=== PATIENT | female | born 1990 | race American Indian/Alaskan Native ===

== ENCOUNTER 2018-12-14 15:17 | Emergency (ER) | payer OTHER ==
--- NOTE | 2018-12-14 16:05 | Emergency Department Report ---
Blank Doc - Documentation Documentation: This is a 28-year-old female that is 17 weeks presents to the ED with n/v. Stated has headache from vomiting so much. Denies any pelvic or abdominal pain. Denies any vaginal bleeding. This initial assessment/diagnostic orders/clinical plan/treatment(s) is/are subject to change based on patient's health status, clinical progression and re- assessment by fellow clinical providers in the ED. Further treatment and workup at subsequent clinical providers discretion. Patient/guardians urged not to elope from the ED as their condition may be serious if not clinically assessed and managed. Initial orders include: 1- Patient sent to [facility] for further evaluation and treatment 2- labs
[2018-12-14 16:06] VITALS: BP 112/59
[2018-12-14 17:08] LABS: Basophils % (Auto) 0.1 % (0.0-1.8); Eosinophils % (Auto) 0.2 % (0.0-4.3); Hematocrit 26.7 % (30.3-42.9); Hemoglobin 9.1 gm/dl (10.1-14.3); Lymphocytes # (Auto) 1.1 K/mm3 (1.2-5.4); Lymphocytes % (Auto) 17.2 % (13.4-35.0); Mean Corpuscular HGB Conc 34 % (30-34); Mean Corpuscular Volume 92 fl (79-97); Monocytes # (Auto) 0.3 K/mm3 (0.0-0.8); Monocytes % (Auto) 5.1 % (0.0-7.3); Platelet Count 181 K/mm3 (140-440); Red Cell Distribution Width 14.2 % (13.2-15.2)
[2018-12-14 17:31] LABS: BUN/Creatinine Ratio 17; Blood Urea Nitrogen 12 mg/dL (7-17); Calcium 8.7 mg/dL (8.4-10.2); Hemolysis Index 0
--- NOTE | 2018-12-14 17:44 | Emergency Department Report ---
Vomiting/Diarrhea - HPI Chief Complaint: Nausea/Vomiting/Diarrhea Stated Complaint: VOMITTING/HEADACHE Time Seen by Provider: 12/14/18 16:02 Duration: 1 Day Nausea/Vomiting Severity: Mild Diarrhea Severity: None Pain Location: Other (no abdominal pain) Symptoms: Yes Able to Tolerate Fluids, No Watery Diarrhea, No Bloody diarrhea, No Fever, No Recent Unusual Foods, No Recent Untreated Water, No Recent use of Antibiotics, No Family w/ Similar Symptoms, No Contacts w/ Similar Symptoms, No Rash, No Hematuria, No Recent URI Symptoms Other History: She is a 28-year-old female who presents to ED complaining of transient vomiting that happened this morning. Patient states she was able to tolerate foods and fluids afterwards. Patient states that she was recently taking Zofran for nausea which is working. She is a [employer]. ED Review of Systems ROS: Stated complaint: VOMITTING/HEADACHE Other details as noted in HPI Comment: All other systems reviewed and negative ED Past Medical Hx - Past Medical History Previous Medical History?: No - Surgical History Past Surgical History?: No - Social History Smoking Status: Former Smoker Substance Use Type: None Vomiting Diarrhea Exam - Exam General: Vital signs noted. No distress. Alert and acting appropriately. HEENT: Yes Moist Mucous Membranes, No Pharyngeal Erythema, No Pharyngeal Exudates, No Rhinorrhea, No Conjuctival Injection, No Frontal Tenderness, No Maxillary Tenderness Neck: No Adenopathy, No Rigidity Lungs: Yes Clear Lung Sounds, Yes Good Air Exchange, No Wheezes, No Stridor, No Cough, No Nasal Flaring, No Retractions, No Use of Accessory Muscles Heart exam: Regular: Yes, Murmur: No, Tachycardia: No Abdomen: Tenderness: No, Peritoneal Signs: No, Distention: No, Hyperactive Bowel sounds: No Skin exam: Rash: No, Edema: No, Normal turgor: Yes Neurologic: Alert and oriented, no deficits. Musculoskeletal: Unremarkable. ED Course Vital Signs 12/14/18 16:05 Temperature 98.5 F Pulse Rate 80 Respiratory 18 Rate Blood Pressure 112/59 O2 Sat by Pulse 99 Oximetry ED Medical Decision Making - Lab Data Result diagrams: 12/14/18 16:45 12/14/18 16:45 - Medical Decision Making 28-year-old female presents with nausea vomiting that is resolved now. Discussed the patient will follow-up with less likely [employer] WORKER. Patient had no vomiting episode in the ED. Labs are within normal limits. Critical care attestation.: If time is entered above; I have spent that time in minutes in the direct care of this critically ill patient, excluding procedure time. ED Disposition Clinical Impression: Nausea and vomiting in Disposition: DC- TO HOME OR SELFCARE Is pt being admited?: No Does the pt Need Aspirin: No Condition: Stable Instructions: Morning Sickness (ED) Additional Instructions: Make sure to follow up with the primary care physician as discussed. Take all your medications as you've been prescribed. If you have any worsening symptoms or develop new symptoms please return to ED immediately. Referrals: KENDELL ARNOLD MD [Primary Care Provider] - 3-5 Days [facility] [Provider Group] - 3-5 Days Forms: Work/School Release Form(ED) Time of Disposition: 18:12
== END 2018-12-14 18:29 | disposition home or self-care (01) ==
LOC: ED 15:17
DX: O21.9 Vomiting of pregnancy, unspecified (principal); Z3A.00 Weeks of gestation of pregnancy not specified; Z87.891 Personal history of nicotine dependence
CPT/HCPCS: 36415; 80048; 85025; 99283

== ENCOUNTER 2019-02-01 11:09 | Outpatient (CLI) | payer OTHER ==
[2019-02-01 11:33] VITALS: BP 102/56
[2019-02-01 12:52] LABS: Bacteria,Urine 4+ /HPF (Negative); Bilirubin,Urine NEG (Negative); Blood,Urine NEG (Negative); Color,Urine Yellow (Yellow); Mucus,Urine 2+ /HPF; Urobilinogen,Urine < 2.0 mg/dL (<2.0)
[2019-02-01] MEDS ORDERED: LACTATED RINGERS 500 ML IV ONE (12:55)
== END 2019-02-01 12:15 | disposition home or self-care (01) ==
LOC: TRG 11:09
PROVIDERS: ATTEND Obstetrics & Gynecology
DX: O47.02 False labor before 37 completed weeks of gestation, second trimester (principal); Z3A.24 24 weeks gestation of pregnancy
CPT/HCPCS: 59025; 81001; 87076; 87086; 87186

== ENCOUNTER 2019-03-31 19:48 | Emergency (ER) | payer OTHER ==
[2019-03-31 20:05] VITALS: BP 121/47
--- NOTE | 2019-03-31 20:20 | Event Note ---
ED Screening Note Date of service: 03/31/19 Time: 20:17 ED Screening Note: This is 28 y.o. F. that presents to the ER with difficulty swallowing and SOB since today. Denies dizziness, fever, cough, sore throat, nausea, or vomiting. Patient is 32 weeks . This initial assessment/diagnostic orders/clinical plan/treatment(s) is/are subject to change based on patients health status, clinical progression and re- assessment by fellow clinical providers in the ED. Further treatment and workup at subsequent clinical providers discretion. Patient/guardian urged not to elope from the ED as their condition may be serious if not clinically assessed and managed. Initial orders include:
--- NOTE | 2019-03-31 21:21 | Emergency Department Report ---
ED General Adult HPI - General Chief complaint: Dyspnea/Respdistress Stated complaint: SOB/THROAT PAIN Time Seen by Provider: 03/31/19 20:16 Source: patient Mode of arrival: Ambulatory Limitations: No Limitations - History of Present Illness Initial comments: Patient is a 28-year-old female presents for complaints of throat irritation and shortness of breath. Patient states the symptoms happen after eating. Patient states the symptoms started today. Patient states she's also been having a lot of burping. Patient denies abdominal pain. Patient denies vaginal bleeding. Patient's is 32 weeks . Patient is being followed by a [employer] [facility]. Patient states the throat irritation feels like a fullness. Patient denies chest pain. Patient denies throat pain. -: Sudden Severity scale (0 -10): 0 Consistency: now resolved Improves with: rest Worsens with: eating Associated Symptoms: shortness of breath. denies: confusion, chest pain, cough, diaphoresis, fever/chills, headaches, loss of appetite, malaise, nausea/vomiting, rash, seizure, syncope, weakness Treatments Prior to Arrival: none - Related Data Previous Rx's Medication Instructions Recorded Last Taken Type Famotidine [Pepcid] 20 mg PO BID 30 Days #15 tablet 03/31/19 Unknown Rx Allergies Allergy/AdvReac Type Severity Reaction Status Date / Time latex Allergy Unknown Verified 02/01/19 11:13 ED Review of Systems ROS: Stated complaint: SOB/THROAT PAIN Other details as noted in HPI Constitutional: denies: chills, fever Eyes: denies: eye pain, eye discharge, vision change ENT: denies: ear pain Respiratory: shortness of breath. denies: cough, wheezing Cardiovascular: denies: chest pain, palpitations Endocrine: no symptoms reported Gastrointestinal: denies: abdominal pain, nausea, diarrhea Genitourinary: denies: urgency, dysuria, discharge Musculoskeletal: denies: back pain, joint swelling, arthralgia Skin: denies: rash, lesions Neurological: denies: headache, weakness, paresthesias Psychiatric: denies: anxiety, depression Hematological/Lymphatic: denies: easy bleeding, easy bruising ED Past Medical Hx - Past Medical History Previous Medical History?: No Hx Hypertension: No Hx Diabetes: No Hx Deep Vein Thrombosis: No Hx Renal Disease: No Hx Sickle Cell Disease: No Hx Seizures: No Hx Asthma: No Hx HIV: No - Surgical History Past Surgical History?: Yes Additional Surgical History: Right eye - Family History Family history: no significant - Social History Smoking Status: Former Smoker Substance Use Type: None - Medications Home Medications: Home Medications Medication Instructions Recorded Confirmed Last Taken Type Famotidine [Pepcid] 20 mg PO BID 30 Days #15 tablet 03/31/19 Unknown Rx ED Physical Exam - General Limitations: No Limitations General appearance: alert, in no apparent distress - Head Head exam: Present: atraumatic, normocephalic - Eye Eye exam: Present: normal appearance - ENT ENT exam: Present: mucous membranes moist - Neck Neck exam: Present: normal inspection - Respiratory Respiratory exam: Present: normal lung sounds bilaterally. Absent: respiratory distress, wheezes, rales, rhonchi, stridor - Cardiovascular Cardiovascular Exam: Present: regular rate, normal rhythm. Absent: systolic murmur, diastolic murmur, rubs, gallop - GI/Abdominal GI/Abdominal exam: Present: soft, distended (gravid abdomen noted), rigid, normal bowel sounds. Absent: tenderness, guarding, rebound - Rectal Rectal exam: Present: deferred - Extremities Exam Extremities exam: Present: normal inspection - Back Exam Back exam: Present: normal inspection - Neurological Exam Neurological exam: Present: alert, oriented X3 - Psychiatric Psychiatric exam: Present: normal affect, normal mood - Skin Skin exam: Present: warm, dry, intact, normal color. Absent: rash ED Course Vital Signs 03/31/19 20:02 Temperature 98.6 F Pulse Rate 90 Respiratory 18 Rate Blood Pressure 121/47 O2 Sat by Pulse 98 Oximetry - Reevaluation(s) Reevaluation #1: Patient's clinical findings are consistent with acid reflux. Patient will be given Pepcid. I discussed clinical findings with patient. I discussed plan of care outpatient. Patient agrees with plan of care. Patient given discharge instructions. Patient voiced understanding of all instructions. 03/31/19 21:18 ED Medical Decision Making - Medical Decision Making Patient is 28-year-old female just mentioned with complaints of shortness of breath and throat irritation. Patient stated her symptoms have resolved by time she got to the main ER. Patient also complained of burping and fullness in her throat. Patient actually have any throat pain. Patient's clinical findings are consistent with acid reflux. She discharged home with Pepcid. Patient by signs stable. Patient oxygen normal. Heart rate normal. - Differential Diagnosis throat irritation. Shortness of breath. Acid reflux GERD. Critical care attestation.: If time is entered above; I have spent that time in minutes in the direct care of this critically ill patient, excluding procedure time. ED Disposition Clinical Impression: GERD without esophagitis Disposition: TO HOME OR SELFCARE Is pt being admited?: No Does the pt Need Aspirin: No Condition: Stable Instructions: Diet for Ulcers and Gastritis (ED), Gastroesophageal Reflux Disease (ED) Additional Instructions: Patient to follow-up with primary cancer to 3 days. Patient to follow-up with [employer] in 2-3 days. Patient to continue vitamins. Patient to start medications as directed. Patient to be a reflux diet. Patient to rest. Patient to increase water. Patient to take Tylenol when necessary for pain. Prescriptions: Famotidine [Pepcid] 20 mg PO BID 30 Days #15 tablet Referrals: MANUELITO GARCIA MD [Primary Care Provider] - 3-5 Days Time of Disposition: 21:24
== END 2019-03-31 22:10 | disposition home or self-care (01) ==
LOC: ED 19:48
DX: K21.9 Gastro-esophageal reflux disease without esophagitis (principal); Z98.890 Other specified postprocedural states; Z87.891 Personal history of nicotine dependence; Z79.899 Other long term (current) drug therapy; Z91.040 Latex allergy status
CPT/HCPCS: 99282

== ENCOUNTER 2019-05-06 21:20 | Outpatient (CLI) | payer OTHER ==
[2019-05-06 21:38] VITALS: BP 127/60
--- NOTE | 2019-05-07 00:26 | Ultrasound Report ---
Limited OB ultrasound INDICATION: labor FINDINGS: There is a single intrauterine . Fetus is in a cephalic presentation. Amniotic fluid index i s normal measuring 11.8 cm. Placenta is located anteriorly and is grade 1. heart rate is 125 bpm. IMPRESSION: Amniotic fluid index is normal. heart rate is 125 bpm. BIOPHYSICAL PROFILE: INDICATION: labor FINDINGS: breathing movements: Score = 2/2 movement: Score = 2/2 posture and tone: Score = 2/2 Qualitative amniotic fluid volume: Score equals 2/2 IMPRESSION: Biophysical profile score = 8/8 Signer Name: Wellington Kern MD Signed: 05/07/2019 12:21 AM Workstation Name: [id number]
--- NOTE | 2019-05-07 10:23 | Progress Note ---
Assessment and Plan A: at 37 4/7 weeks gestation. False labor. Reactive NST. BPP 8/8. Normal SALINA. P: Discharge patient home with instructions to count movements daily and keep scheduled follow up at [facility] office. Signs of labor and late warning signs discussed with pt. Subjective - Subjective Date of service: 05/06/19 Principal diagnosis: at 37 4/7 weeks; R/O labor Interval history: 28 year old presents to L&D triage at 37 4/7 weeks to rule out labor. Patient states she was at a wedding dancing when she began to feel contractions this afternoon. Pt. denies leaking of fluid or vaginal bleeding. Patient reports active movement. Patient denies falls or abdominal trauma. Patient receives care at [facility] and she states she has had no problems during this . Previous full term vaginal . Patient reports: movement normal, contractions, no loss of fluid, no vaginal bleeding Objective - Vital Signs Vital Signs: Vital Signs - 12hr 05/06/19 22:25 Pulse Rate 91 H O2 Sat by Pulse 100 Oximetry - Exam Narrative Exam: BPP 8/8. SALINA 11.8 cm. Category 1 heart rate tracing. Abdomen: Present: normal appearance, soft. Absent: distention, tenderness, guar ding, rigidity Uterus: Present: normal, fundal height above umbilicus. Absent: tenderness FHR: category 1 Uterine Contraction Monitor Mode: External Cervical Dilatation: 1.5 Cervical Effacement Percentage: 50 station: -3 Uterine Contraction Pattern: Irregular Uterine Contraction Intensity: Mild Extremities: normal
== END 2019-05-06 23:50 | disposition home or self-care (01) ==
LOC: TRG 21:20
PROVIDERS: ATTEND Obstetrics & Gynecology
DX: O47.03 False labor before 37 completed weeks of gestation, third trimester (principal); Z3A.37 37 weeks gestation of pregnancy
CPT/HCPCS: 59025; 76815; 76819

== ENCOUNTER 2021-02-26 09:22 | Outpatient (CLI) | payer OTHER ==
[2021-02-26 09:55] VITALS: BP 109/57
--- NOTE | 2021-02-26 11:58 | Vascular Lab Report ---
DUPLEX DOPPLER LOWER EXTREMITY VEINS, LEFT INDICATION / CLINICAL INFORMATION: left upper leg pain. TECHNIQUE: Duplex doppler imaging was performed through the veins of the left lower extremity using venous compr ession and other maneuvers. COMPARISON: None available. FINDINGS: LEFT COMMON FEMORAL VEIN: Negative. LEFT FEMORAL VEIN: Negative. LEFT POPLITEAL VEIN: Negative. LEFT CALF VEINS: Negative. ADDITIONAL FINDINGS: None. IMPRESSION: 1. No sonographic evidence for DVT in the left lower extremity. Signer Name: Geoff Louise MD Signed: 02/26/2021 11:54 AM Workstation Name: [id number]
== END 2021-02-26 13:04 | disposition home or self-care (01) ==
LOC: TRG 09:22 → APU 09:24 → TRG 13:04
PROVIDERS: ATTEND Obstetrics & Gynecology
DX: O26.892 Other specified pregnancy related conditions, second trimester (principal); M79.652 Pain in left thigh; Z3A.26 26 weeks gestation of pregnancy

== ENCOUNTER 2021-03-16 18:44 | Outpatient (CLI) | payer OTHER | END 2021-03-16 23:36 | disposition home or self-care (01) | LOC: TRG 18:44 → APU 18:45 | CPT/HCPCS: 59025 ==

== ENCOUNTER 2021-05-04 21:44 | Observation (INO) | payer OTHER ==
[2021-05-04 23:07] LABS: Bacteria,Urine 1+ /HPF (Negative); Bilirubin,Urine NEG (Negative); Blood,Urine NEG (Negative); Color,Urine Yellow (Yellow); Mucus,Urine 2+ /HPF; Urobilinogen,Urine < 2.0 mg/dL (<2.0)
[2021-05-04] MEDS ORDERED: LACTATED RINGERS 1,000 ML IV ONE (23:30)
--- NOTE | 2021-05-04 23:47 | History and Physical Report ---
History of Present Illness Date of examination: 05/04/21 Date of admission: 05/04/2021 Chief complaint: Contractions History of present illness: 30 year old presents with complaint of contractions. In triage, patient was found to have elevated BP. Patient denies visual disturbance or nausea and vomiting. Patient reports active movement. Patient denies LOF or VB. Patient reports she received care at [facility]. Prenaal records are not available. Patient states her EDC is 05/31/21 (based on her LMP). Patient denies any compications with this . 2 previous vaginal births. Past History Past Medical History: other (obesity) Past Surgical History: no surgical history [employer]FERENCE LIBRARIAN History: trichomonas (in the past, treated and cured) Family/Genetic History: hypertension, cancer Social history: lives with family, full code. denies: smoking, alcohol abuse, prescription drug abuse, IV drug use - Obstetrical History Expected Date of Delivery: 05/31/21 Actual Gestation: 36 Week(s) 2 Day(s) : 3 Para: 2 Hx # Term Pregnancies: 2 Number of Pregnancies: 0 Spontaneous Abortions: 0 Induced : 0 Number of Living Children: 2 Medications and Allergies Allergies Allergy/AdvReac Type Severity Reaction Status Date / Time latex Allergy Unknown Verified 05/12/19 03:26 Home Medications Medication Instructions Recorded Confirmed Last Taken Type Cholecalciferol (Vitamin D3) 1 tab PO DAILY 05/11/19 05/12/19 05/09/19 History [Vitamin D3 5,000 UNIT] Ferrous Sulfate [Iron 325 MG] 1 tab PO BID 05/11/19 05/12/19 05/10/19 History Vit-Fe Fumar-FA [ 1 tab PO DAILY 05/11/19 05/12/19 05/11/19 History Vitamin] Active Meds: Active Medications Acetaminophen (Acetaminophen 325 Mg Tab) 650 mg PO Q4H PRN PRN Reason: Pain MILD(1-3)/Fever >100.5/BEAR Lactated Ringer's (Lactated Ringers) 1,000 mls @ 999 mls/hr IV BOLUS ONE Stop: 05/05/21 00:30 Lactated Ringer's (Lactated Ringers) 1,000 mls @ 125 mls/hr IV DIRECT LUCÍA Multivitamins/Iron/Calcium ( [id number]-Oi Fumarate-Folic Acid Vit Tab) 1 each PO QDAY LUCÍA Ondansetron HCl (Ondansetron 4 Mg/2 Ml Inj) 4 mg IV Q6H PRN PRN Reason: Nausea And Vomiting Review of Systems All systems: negative (irregular mild contractions) - Vital Signs Vital signs: Vital Signs Pulse BP Pulse Ox 72 135/95 99 05/04/21 22:41 05/04/21 22:41 05/04/21 22:41 Temp Pulse Resp BP Pulse Ox 98.6 F 75 18 169/81 100 05/04/21 22:42 05/04/21 23:36 05/04/21 22:42 05/04/21 23:28 05/04/21 23:36 - Physical Exam Abdomen: Positive: normal appearance, soft. Negative: distention, tenderness, guarding, rigidity Genitourinary (Female): Positive: normal external genitalia. Negative: perineal/vulvar lesions Vagina: Positive: normal moisture Uterus: Positive: enlarged, other. Negative: tender Anus/Rectum: Positive: normal perianal skin Extremities: Positive: edema. Negative: tenderness - Obstetrical FHR: category 1 Cervical Dilatation: 0 Cervical Effacement Percentage: 20 station: -3 Uterine Contraction Pattern: Irregular Uterine Contraction Intensity: Mild Results All other labs normal. Assessment and Plan A: at 36 weeks, 1 day gestation. Elevated blood pressures (PIH vs. preE). Not in active labor. P: Admit for 23 hour observation. Serial BPs. Preeclamptic labs. 24 hour urine for total protein, creatinine, and creatinine clearance. US for BPP/SALINA. EFM.
[2021-05-04] MEDS ORDERED: ACETAMINOPHEN 325 MG TAB PO PRN (23:50)
[2021-05-04] MEDS ORDERED: ONDANSETRON 4 MG/2 ML INJ IV PRN (23:50)
[2021-05-05 01:56] LABS: Basophils % (Auto) 0.4 % (0.0-1.8); Hematocrit 31.2 % (30.3-42.9); Hemoglobin 10.6 gm/dl (10.1-14.3); Lymphocytes % (Auto) 23.9 % (13.4-35.0); Mean Corpuscular HGB Conc 34 % (30-34); Mean Corpuscular Volume 93 fl (79-97); Monocytes # (Auto) 0.5 K/mm3 (0.0-0.8); Monocytes % (Auto) 6.2 % (0.0-7.3); Platelet Count 189 K/mm3 (140-440); Red Blood Count 3.37 M/mm3 (3.65-5.03); Red Cell Distribution Width 16.2 % (13.2-15.2)
--- NOTE | 2021-05-05 02:15 | Ultrasound Report ---
Biophysical profile INDICATION: well-being FINDINGS: heart rate 133. Biophysical profile score 8 out of 8. IMPRESSION: Normal biophysical profile. Limited OB ultrasound INDICATION: SALINA FINDINGS: Live intrauterine in cephalic position. SALINA measures 9.1 cm. heart rate 1 3 3 bpm. IMPRESSION: SALINA measures 9.1 cm. Normal heart rate Signer Name: Giovanny Newberry MD Signed: 05/05/2021 2:10 AM Workstation Name: [id number]
[2021-05-05 02:23] LABS: Uric Acid 4.9 mg/dL (3.5-7.6)
[2021-05-05 02:24] LABS: Alanine Aminotransferase 18 units/L (7-56); Albumin 3.3 g/dL (3.9-5); Blood Urea Nitrogen 13 mg/dL (7-17); Calcium 9.7 mg/dL (8.4-10.2); Hemolysis Index 89
[2021-05-05 02:35] LABS: BUN/Creatinine Ratio 22
[2021-05-05] MEDS: PRENATAL VIT27-FE FUMARATE-FOLIC ACID VIT TAB PO SCH (09:30)
--- NOTE | 2021-05-05 13:17 | Progress Note ---
Subjective - Subjective Date of service: 05/05/21 Principal diagnosis: elevated blood pressure Interval history: BP's <140/90 since yesterday at 13:00 [facility] labs WNL Plan to complete 24 hour urine, if <300mg/dl will d/c to home for conservative management. Michelle Bartlett MD Patient reports: movement normal Objective - Vital Signs Vital Signs: Vital Signs - 12hr 05/05/21 05/05/21 05/05/21 01:32 01:33 01:37 Temperature Pulse Rate 75 69 75 Respiratory Rate Blood Pressure 140/73 O2 Sat by Pulse 99 98 Oximetry O2 Sat by Pulse Oximetry [ Bilateral] 05/05/21 05/05/21 05/05/21 01:39 01:42 01:47 Temperature 99.7 F H Pulse Rate 73 70 Respiratory Rate Blood Pressure O2 Sat by Pulse 98 99 Oximetry O2 Sat by Pulse 99 Oximetry [ Bilateral] 05/05/21 05/05/21 05/05/21 01:52 01:57 02:02 Temperature Pulse Rate 73 76 70 Respiratory Rate Blood Pressure O2 Sat by Pulse 99 99 99 Oximetry O2 Sat by Pulse Oximetry [ Bilateral] 05/05/21 05/05/21 05/05/21 02:07 02:12 02:17 Temperature Pulse Rate 76 93 H 93 H Respiratory Rate Blood Pressure O2 Sat by Pulse 99 97 98 Oximetry O2 Sat by Pulse Oximetry [ Bilateral] 05/05/21 05/05/21 05/05/21 02:22 02:27 02:32 Temperature Pulse Rate 89 88 89 Respiratory Rate Blood Pressure O2 Sat by Pulse 99 98 100 Oximetry O2 Sat by Pulse Oximetry [ Bilateral] 05/05/21 05/05/21 05/05/21 02:45 02:50 02:55 Temperature Pulse Rate 94 H 87 84 Respiratory Rate Blood Pressure O2 Sat by Pulse 100 98 98 Oximetry O2 Sat by Pulse Oximetry [ Bilateral] 05/05/21 05/05/21 05/05/21 03:00 03:05 03:10 Temperature Pulse Rate 83 86 94 H Respiratory Rate Blood Pressure O2 Sat by Pulse 98 97 99 Oximetry O2 Sat by Pulse Oximetry [ Bilateral] 05/05/21 05/05/21 05/05/21 03:15 03:20 03:25 Temperature Pulse Rate 90 92 H 91 H Respiratory Rate Blood Pressure O2 Sat by Pulse 97 97 97 Oximetry O2 Sat by Pulse Oximetry [ Bilateral] 05/05/21 05/05/21 05/05/21 03:30 03:35 03:40 Temperature Pulse Rate 92 H 90 94 H Respiratory Rate Blood Pressure O2 Sat by Pulse 97 97 97 Oximetry O2 Sat by Pulse Oximetry [ Bilateral] 05/05/21 05/05/21 05/05/21 03:45 03:50 03:55 Temperature Pulse Rate 91 H 94 H 92 H Respiratory Rate Blood Pressure O2 Sat by Pulse 97 97 97 Oximetry O2 Sat by Pulse Oximetry [ Bilateral] 05/05/21 05/05/21 05/05/21 04:00 04:05 04:10 Temperature Pulse Rate 92 H 87 90 Respiratory Rate Blood Pressure O2 Sat by Pulse 97 96 97 Oximetry O2 Sat by Pulse Oximetry [ Bilateral] 05/05/21 05/05/21 05/05/21 04:15 04:20 04:25 Temperature Pulse Rate 95 H 89 98 H Respiratory Rate Blood Pressure O2 Sat by Pulse 99 99 99 Oximetry O2 Sat by Pulse Oximetry [ Bilateral] 05/05/21 05/05/21 05/05/21 04:30 04:35 04:41 Temperature Pulse Rate 87 85 86 Respiratory Rate Blood Pressure O2 Sat by Pulse 99 99 100 Oximetry O2 Sat by Pulse Oximetry [ Bilateral] 05/05/21 05/05/21 05/05/21 04:46 04:51 04:56 Temperature Pulse Rate 84 79 85 Respiratory Rate Blood Pressure O2 Sat by Pulse 98 98 99 Oximetry O2 Sat by Pulse Oximetry [ Bilateral] 05/05/21 05/05/21 05/05/21 05:01 05:06 05:11 Temperature Pulse Rate 84 87 82 Respiratory Rate Blood Pressure O2 Sat by Pulse 99 99 99 Oximetry O2 Sat by Pulse Oximetry [ Bilateral] 05/05/21 05/05/21 05/05/21 05:16 05:21 05:26 Temperature Pulse Rate 84 86 95 H Respiratory Rate Blood Pressure O2 Sat by Pulse 98 99 100 Oximetry O2 Sat by Pulse Oximetry [ Bilateral] 05/05/21 05/05/21 05/05/21 05:31 05:36 05:41 Temperature Pulse Rate 75 77 78 Respiratory Rate Blood Pressure O2 Sat by Pulse 98 97 97 Oximetry O2 Sat by Pulse Oximetry [ Bilateral] 05/05/21 05/05/21 05/05/21 05:46 05:51 05:56 Temperature Pulse Rate 79 76 74 Respiratory Rate Blood Pressure O2 Sat by Pulse 99 98 98 Oximetry O2 Sat by Pulse Oximetry [ Bilateral] 05/05/21 05/05/21 05/05/21 06:01 06:06 06:11 Temperature Pulse Rate 75 76 75 Respiratory Rate Blood Pressure O2 Sat by Pulse 98 98 97 Oximetry O2 Sat by Pulse Oximetry [ Bilateral] 05/05/21 05/05/21 05/05/21 06:16 06:21 06:26 Temperature Pulse Rate 75 74 74 Respiratory Rate Blood Pressure O2 Sat by Pulse 97 97 97 Oximetry O2 Sat by Pulse Oximetry [ Bilateral] 05/05/21 05/05/21 05/05/21 06:31 06:36 06:41 Temperature Pulse Rate 74 73 71 Respiratory Rate Blood Pressure O2 Sat by Pulse 97 97 99 Oximetry O2 Sat by Pulse Oximetry [ Bilateral] 05/05/21 05/05/21 05/05/21 06:46 06:47 06:51 Temperature Pulse Rate 74 72 72 Respiratory Rate Blood Pressure O2 Sat by Pulse 97 94 98 Oximetry O2 Sat by Pulse Oximetry [ Bilateral] 05/05/21 05/05/21 05/05/21 06:56 07:01 07:06 Temperature Pulse Rate 76 79 76 Respiratory Rate Blood Pressure O2 Sat by Pulse 99 98 98 Oximetry O2 Sat by Pulse Oximetry [ Bilateral] 05/05/21 05/05/21 05/05/21 07:21 07:25 07:26 Temperature 98.0 F Pulse Rate 70 Respiratory 18 Rate Blood Pressure 127/77 O2 Sat by Pulse 83 L 100 Oximetry O2 Sat by Pulse 99 Oximetry [ Bilateral] 05/05/21 05/05/21 05/05/21 07:31 07:36 07:41 Temperature Pulse Rate 64 71 69 Respiratory Rate Blood Pressure O2 Sat by Pulse 100 100 100 Oximetry O2 Sat by Pulse Oximetry [ Bilateral] 05/05/21 05/05/21 05/05/21 07:46 07:51 07:56 Temperature Pulse Rate 69 76 77 Respiratory Rate Blood Pressure O2 Sat by Pulse 99 99 99 Oximetry O2 Sat by Pulse Oximetry [ Bilateral] 05/05/21 05/05/21 05/05/21 08:01 08:06 08:11 Temperature Pulse Rate 69 79 75 Respiratory Rate Blood Pressure O2 Sat by Pulse 100 100 99 Oximetry O2 Sat by Pulse Oximetry [ Bilateral] 05/05/21 05/05/21 05/05/21 08:16 08:21 08:26 Temperature Pulse Rate 76 74 67 Respiratory Rate Blood Pressure O2 Sat by Pulse 99 99 99 Oximetry O2 Sat by Pulse Oximetry [ Bilateral] 05/05/21 05/05/21 05/05/21 08:31 08:36 08:41 Temperature Pulse Rate 67 68 71 Respiratory Rate Blood Pressure O2 Sat by Pulse 96 97 97 Oximetry O2 Sat by Pulse Oximetry [ Bilateral] 05/05/21 05/05/21 05/05/21 08:46 08:51 08:56 Temperature Pulse Rate 65 64 64 Respiratory Rate Blood Pressure O2 Sat by Pulse 99 98 99 Oximetry O2 Sat by Pulse Oximetry [ Bilateral] 05/05/21 05/05/21 05/05/21 08:57 09:01 09:06 Temperature Pulse Rate 63 68 71 Respiratory Rate Blood Pressure 126/60 O2 Sat by Pulse 99 98 Oximetry O2 Sat by Pulse Oximetry [ Bilateral] 05/05/21 05/05/21 05/05/21 09:11 09:16 09:21 Temperature Pulse Rate 76 72 73 Respiratory Rate Blood Pressure O2 Sat by Pulse 98 97 97 Oximetry O2 Sat by Pulse Oximetry [ Bilateral] 05/05/21 05/05/21 05/05/21 09:43 09:48 09:53 Temperature Pulse Rate 88 69 69 Respiratory Rate Blood Pressure O2 Sat by Pulse 98 100 100 Oximetry O2 Sat by Pulse Oximetry [ Bilateral] 05/05/21 05/05/21 05/05/21 09:58 09:59 10:03 Temperature Pulse Rate 72 77 70 Respiratory Rate Blood Pressure 114/69 O2 Sat by Pulse 100 100 Oximetry O2 Sat by Pulse Oximetry [ Bilateral] 05/05/21 05/05/21 05/05/21 10:08 10:13 10:18 Temperature Pulse Rate 70 72 70 Respiratory Rate Blood Pressure O2 Sat by Pulse 99 98 100 Oximetry O2 Sat by Pulse Oximetry [ Bilateral] 05/05/21 05/05/21 05/05/21 10:23 10:28 10:30 Temperature Pulse Rate 69 75 73 Respiratory Rate Blood Pressure 142/77 O2 Sat by Pulse 100 100 Oximetry O2 Sat by Pulse Oximetry [ Bilateral] 05/05/21 05/05/21 05/05/21 10:33 10:38 10:43 Temperature Pulse Rate 76 74 73 Respiratory Rate Blood Pressure O2 Sat by Pulse 99 99 98 Oximetry O2 Sat by Pulse Oximetry [ Bilateral] 05/05/21 05/05/21 05/05/21 10:48 10:51 10:53 Temperature Pulse Rate 74 74 Respiratory Rate Blood Pressure O2 Sat by Pulse 99 65 L 99 Oximetry O2 Sat by Pulse Oximetry [ Bilateral] 05/05/21 05/05/21 05/05/21 10:58 11:00 11:03 Temperature Pulse Rate 71 81 78 Respiratory Rate Blood Pressure 141/84 O2 Sat by Pulse 100 94 97 Oximetry O2 Sat by Pulse Oximetry [ Bilateral] 05/05/21 05/05/21 05/05/21 11:08 11:12 11:13 Temperature Pulse Rate 77 80 79 Respiratory Rate Blood Pressure O2 Sat by Pulse 99 94 100 Oximetry O2 Sat by Pulse Oximetry [ Bilateral] 05/05/21 05/05/21 05/05/21 11:15 11:18 11:19 Temperature 97.7 F Pulse Rate 79 74 Respiratory Rate Blood Pressure O2 Sat by Pulse 100 86 Oximetry O2 Sat by Pulse Oximetry [ Bilateral] 05/05/21 05/05/21 05/05/21 11:23 11:28 11:30 Temperature Pulse Rate 76 78 81 Respiratory Rate Blood Pressure 191/106 O2 Sat by Pulse 98 99 Oximetry O2 Sat by Pulse Oximetry [ Bilateral] 05/05/21 05/05/21 05/05/21 11:33 11:38 11:43 Temperature Pulse Rate 82 80 81 Respiratory Rate Blood Pressure O2 Sat by Pulse 99 99 98 Oximetry O2 Sat by Pulse Oximetry [ Bilateral] 05/05/21 05/05/21 05/05/21 11:52 11:57 11:58 Temperature Pulse Rate 89 Respiratory Rate Blood Pressure O2 Sat by Pulse 72 L 96 93 Oximetry O2 Sat by Pulse Oximetry [ Bilateral] 05/05/21 05/05/21 05/05/21 12:00 12:03 12:04 Temperature Pulse Rate 94 H 72 Respiratory Rate Blood Pressure 141/98 O2 Sat by Pulse 79 L 82 L Oximetry O2 Sat by Pulse Oximetry [ Bilateral] 05/05/21 05/05/21 05/05/21 12:08 12:10 12:14 Temperature Pulse Rate 88 79 Respiratory Rate Blood Pressure O2 Sat by Pulse 84 77 L 81 L Oximetry O2 Sat by Pulse Oximetry [ Bilateral] 05/05/21 05/05/21 05/05/21 12:16 12:19 12:21 Temperature Pulse Rate 89 74 Respiratory Rate Blood Pressure O2 Sat by Pulse 100 73 L 95 Oximetry O2 Sat by Pulse Oximetry [ Bilateral] 05/05/21 05/05/21 05/05/21 12:27 12:29 12:32 Temperature Pulse Rate 70 75 67 Respiratory Rate Blood Pressure 118/66 120/68 O2 Sat by Pulse 98 100 Oximetry O2 Sat by Pulse Oximetry [ Bilateral] 05/05/21 05/05/21 05/05/21 12:37 12:42 12:47 Temperature Pulse Rate 77 73 80 Respiratory Rate Blood Pressure O2 Sat by Pulse 99 99 100 Oximetry O2 Sat by Pulse Oximetry [ Bilateral] 05/05/21 05/05/21 05/05/21 12:52 12:57 13:00 Temperature Pulse Rate 68 74 79 Respiratory Rate Blood Pressure 122/72 O2 Sat by Pulse 99 100 Oximetry O2 Sat by Pulse Oximetry [ Bilateral] 05/05/21 05/05/21 05/05/21 13:02 13:07 13:12 Temperature Pulse Rate 77 74 82 Respiratory Rate Blood Pressure O2 Sat by Pulse 100 100 100 Oximetry O2 Sat by Pulse Oximetry [ Bilateral] - Labs Labs: Abnormal Labs 05/05/21 05/05/21 05/05/21 01:25 01:25 01:25 RBC 3.37 L RDW 16.2 H Carbon Dioxide 21 L Glucose 64 L Alkaline Phosphatase 157 H Lactate Dehydrogenase 212 H Albumin 3.3 L Laboratory Results - last 24 hr 05/04/21 05/05/21 05/05/21 22:55 01:25 01:25 WBC 8.4 RBC 3.37 L Hgb 10.6 Hct 31.2 MCV 93 MCH 31 MCHC 34 RDW 16.2 H Plt Count 189 Lymph % (Auto) 23.9 Clark % (Auto) 6.2 Eos % (Auto) 0.0 Baso % (Auto) 0.4 Lymph # (Auto) 2.0 Clark # (Auto) 0.5 Eos # (Auto) 0.0 Baso # (Auto) 0.0 Seg Neutrophils % 69.5 Seg Neutrophils # 5.8 Sodium 137 Potassium 4.6 Chloride 106.8 Carbon Dioxide 21 L Anion Gap 14 BUN 13 Creatinine 0.6 Estimated GFR > 60 BUN/Creatinine Ratio 22 Glucose 64 L Uric Acid Calcium 9.7 Total Bilirubin 0.20 AST 24 ALT 18 Alkaline Phosphatase 157 H Lactate Dehydrogenase Total Protein 6.8 Albumin 3.3 L Albumin/Globulin Ratio 0.9 Urine Color Yellow Urine Turbidity Clear Urine pH 6.0 Ur Specific Strum 1.029 Urine Protein 100 mg/dl Urine Glucose (UA) Neg Urine Ketones Neg Urine Blood Neg Urine Nitrite Neg Urine Bilirubin Neg Urine Urobilinogen < 2.0 Ur Leukocyte Esterase Neg Urine WBC (Auto) 4.0 Urine RBC (Auto) 3.0 U Epithel Cells (Auto) 4.0 Urine Bacteria (Auto) 1+ Urine Mucus 2+ Blood Type Antibody Screen 05/05/21 05/05/21 01:25 01:25 WBC RBC Hgb Hct MCV MCH MCHC RDW Plt Count Lymph % (Auto) Clark % (Auto) Eos % (Auto) Baso % (Auto) Lymph # (Auto) Clark # (Auto) Eos # (Auto) Baso # (Auto) Seg Neutrophils % Seg Neutrophils # Sodium Potassium Chloride Carbon Dioxide Anion Gap BUN Creatinine Estimated GFR BUN/Creatinine Ratio Glucose Uric Acid 4.9 Calcium Total Bilirubin AST ALT Alkaline Phosphatase Lactate Dehydrogenase 212 H Total Protein Albumin Albumin/Globulin Ratio Urine Color Urine Turbidity Urine pH Ur Specific Strum Urine Protein Urine Glucose (UA) Urine Ketones Urine Blood Urine Nitrite Urine Bilirubin Urine Urobilinogen Ur Leukocyte Esterase Urine WBC (Auto) Urine RBC (Auto) U Epithel Cells (Auto) Urine Bacteria (Auto) Urine Mucus Blood Type A POSITIVE Antibody Screen Negative
--- NOTE | 2021-05-05 21:04 | Progress Note ---
Subjective - Subjective Date of service: 05/05/21 Principal diagnosis: elevated blood pressure Interval history: PM rounds BP 130-140/70-80 FHT 130 baseline, moderate variability [place]: not iesha LAbs: 24 hour urine pending(complete at 02:30 05/06/21) Maternal/ status reassuring Michelle Bartlett MD Patient reports: movement normal Objective - Vital Signs Vital Signs: Vital Signs - 12hr 05/05/21 05/05/21 05/05/21 09:01 09:06 09:11 Temperature Pulse Rate 68 71 76 Respiratory Rate Blood Pressure Blood Pressure [Left] O2 Sat by Pulse 99 98 98 Oximetry O2 Sat by Pulse Oximetry [ Bilateral] 05/05/21 05/05/21 05/05/21 09:16 09:21 09:43 Temperature Pulse Rate 72 73 88 Respiratory Rate Blood Pressure Blood Pressure [Left] O2 Sat by Pulse 97 97 98 Oximetry O2 Sat by Pulse Oximetry [ Bilateral] 05/05/21 05/05/21 05/05/21 09:48 09:53 09:58 Temperature Pulse Rate 69 69 72 Respiratory Rate Blood Pressure Blood Pressure [Left] O2 Sat by Pulse 100 100 100 Oximetry O2 Sat by Pulse Oximetry [ Bilateral] 05/05/21 05/05/21 05/05/21 09:59 10:03 10:08 Temperature Pulse Rate 77 70 70 Respiratory Rate Blood Pressure 114/69 Blood Pressure [Left] O2 Sat by Pulse 100 99 Oximetry O2 Sat by Pulse Oximetry [ Bilateral] 05/05/21 05/05/21 05/05/21 10:13 10:18 10:23 Temperature Pulse Rate 72 70 69 Respiratory Rate Blood Pressure Blood Pressure [Left] O2 Sat by Pulse 98 100 100 Oximetry O2 Sat by Pulse Oximetry [ Bilateral] 05/05/21 05/05/21 05/05/21 10:28 10:30 10:33 Temperature Pulse Rate 75 73 76 Respiratory Rate Blood Pressure 142/77 Blood Pressure [Left] O2 Sat by Pulse 100 99 Oximetry O2 Sat by Pulse Oximetry [ Bilateral] 05/05/21 05/05/21 05/05/21 10:38 10:43 10:48 Temperature Pulse Rate 74 73 74 Respiratory Rate Blood Pressure Blood Pressure [Left] O2 Sat by Pulse 99 98 99 Oximetry O2 Sat by Pulse Oximetry [ Bilateral] 05/05/21 05/05/21 05/05/21 10:51 10:53 10:58 Temperature Pulse Rate 74 71 Respiratory Rate Blood Pressure Blood Pressure [Left] O2 Sat by Pulse 65 L 99 100 Oximetry O2 Sat by Pulse Oximetry [ Bilateral] 05/05/21 05/05/21 05/05/21 11:00 11:03 11:08 Temperature Pulse Rate 81 78 77 Respiratory Rate Blood Pressure 141/84 Blood Pressure [Left] O2 Sat by Pulse 94 97 99 Oximetry O2 Sat by Pulse Oximetry [ Bilateral] 05/05/21 05/05/21 05/05/21 11:12 11:13 11:15 Temperature 97.7 F Pulse Rate 80 79 Respiratory Rate Blood Pressure Blood Pressure [Left] O2 Sat by Pulse 94 100 Oximetry O2 Sat by Pulse Oximetry [ Bilateral] 05/05/21 05/05/21 05/05/21 11:18 11:19 11:23 Temperature Pulse Rate 79 74 76 Respiratory Rate Blood Pressure Blood Pressure [Left] O2 Sat by Pulse 100 86 98 Oximetry O2 Sat by Pulse Oximetry [ Bilateral] 05/05/21 05/05/21 05/05/21 11:28 11:30 11:33 Temperature Pulse Rate 78 81 82 Respiratory Rate Blood Pressure 191/106 Blood Pressure [Left] O2 Sat by Pulse 99 99 Oximetry O2 Sat by Pulse Oximetry [ Bilateral] 05/05/21 05/05/21 05/05/21 11:38 11:43 11:52 Temperature Pulse Rate 80 81 Respiratory Rate Blood Pressure Blood Pressure [Left] O2 Sat by Pulse 99 98 72 L Oximetry O2 Sat by Pulse Oximetry [ Bilateral] 05/05/21 05/05/21 05/05/21 11:57 11:58 12:00 Temperature Pulse Rate 89 94 H Respiratory Rate Blood Pressure 141/98 Blood Pressure [Left] O2 Sat by Pulse 96 93 Oximetry O2 Sat by Pulse Oximetry [ Bilateral] 05/05/21 05/05/21 05/05/21 12:03 12:04 12:08 Temperature Pulse Rate 72 Respiratory Rate Blood Pressure Blood Pressure [Left] O2 Sat by Pulse 79 L 82 L 84 Oximetry O2 Sat by Pulse Oximetry [ Bilateral] 05/05/21 05/05/21 05/05/21 12:10 12:14 12:16 Temperature Pulse Rate 88 79 89 Respiratory Rate Blood Pressure Blood Pressure [Left] O2 Sat by Pulse 77 L 81 L 100 Oximetry O2 Sat by Pulse Oximetry [ Bilateral] 05/05/21 05/05/21 05/05/21 12:19 12:21 12:27 Temperature Pulse Rate 74 70 Respiratory Rate Blood Pressure 118/66 Blood Pressure [Left] O2 Sat by Pulse 73 L 95 98 Oximetry O2 Sat by Pulse Oximetry [ Bilateral] 05/05/21 05/05/21 05/05/21 12:29 12:32 12:37 Temperature Pulse Rate 75 67 77 Respiratory Rate Blood Pressure 120/68 Blood Pressure [Left] O2 Sat by Pulse 100 99 Oximetry O2 Sat by Pulse Oximetry [ Bilateral] 05/05/21 05/05/21 05/05/21 12:42 12:47 12:52 Temperature Pulse Rate 73 80 68 Respiratory Rate Blood Pressure Blood Pressure [Left] O2 Sat by Pulse 99 100 99 Oximetry O2 Sat by Pulse Oximetry [ Bilateral] 05/05/21 05/05/21 05/05/21 12:57 13:00 13:02 Temperature Pulse Rate 74 79 77 Respiratory Rate Blood Pressure 122/72 Blood Pressure [Left] O2 Sat by Pulse 100 100 Oximetry O2 Sat by Pulse Oximetry [ Bilateral] 05/05/21 05/05/21 05/05/21 13:07 13:12 13:17 Temperature Pulse Rate 74 82 76 Respiratory Rate Blood Pressure Blood Pressure [Left] O2 Sat by Pulse 100 100 99 Oximetry O2 Sat by Pulse Oximetry [ Bilateral] 05/05/21 05/05/21 05/05/21 13:22 13:27 13:31 Temperature Pulse Rate 79 78 73 Respiratory Rate Blood Pressure 129/61 Blood Pressure [Left] O2 Sat by Pulse 99 100 Oximetry O2 Sat by Pulse Oximetry [ Bilateral] 05/05/21 05/05/21 05/05/21 13:32 13:37 13:42 Temperature Pulse Rate 75 77 87 Respiratory Rate Blood Pressure Blood Pressure [Left] O2 Sat by Pulse 99 99 99 Oximetry O2 Sat by Pulse Oximetry [ Bilateral] 05/05/21 05/05/21 05/05/21 13:47 13:52 13:57 Temperature Pulse Rate 93 H 92 H 88 Respiratory Rate Blood Pressure Blood Pressure [Left] O2 Sat by Pulse 99 100 99 Oximetry O2 Sat by Pulse Oximetry [ Bilateral] 05/05/21 05/05/21 05/05/21 14:00 14:02 14:07 Temperature Pulse Rate 86 81 80 Respiratory Rate Blood Pressure 133/72 Blood Pressure [Left] O2 Sat by Pulse 99 100 Oximetry O2 Sat by Pulse Oximetry [ Bilateral] 05/05/21 05/05/21 05/05/21 14:12 14:17 14:22 Temperature Pulse Rate 80 82 87 Respiratory Rate Blood Pressure Blood Pressure [Left] O2 Sat by Pulse 100 100 99 Oximetry O2 Sat by Pulse Oximetry [ Bilateral] 05/05/21 05/05/21 05/05/21 14:36 14:41 14:45 Temperature Pulse Rate 99 H 83 79 Respiratory Rate Blood Pressure 137/70 Blood Pressure [Left] O2 Sat by Pulse 100 99 Oximetry O2 Sat by Pulse Oximetry [ Bilateral] 05/05/21 05/05/21 05/05/21 14:46 14:51 14:56 Temperature Pulse Rate 90 86 84 Respiratory Rate Blood Pressure Blood Pressure [Left] O2 Sat by Pulse 99 99 100 Oximetry O2 Sat by Pulse Oximetry [ Bilateral] 05/05/21 05/05/21 05/05/21 15:00 15:01 15:06 Temperature 97.8 F Pulse Rate 84 82 Respiratory Rate Blood Pressure 145/66 Blood Pressure [Left] O2 Sat by Pulse 100 100 Oximetry O2 Sat by Pulse Oximetry [ Bilateral] 05/05/21 05/05/21 05/05/21 15:11 15:16 15:21 Temperature Pulse Rate 86 84 82 Respiratory Rate Blood Pressure Blood Pressure [Left] O2 Sat by Pulse 100 99 99 Oximetry O2 Sat by Pulse Oximetry [ Bilateral] 05/05/21 05/05/21 05/05/21 15:26 15:30 15:31 Temperature Pulse Rate 85 82 83 Respiratory Rate Blood Pressure 129/64 Blood Pressure [Left] O2 Sat by Pulse 99 99 Oximetry O2 Sat by Pulse Oximetry [ Bilateral] 05/05/21 05/05/21 05/05/21 15:36 15:41 15:46 Temperature Pulse Rate 83 82 83 Respiratory Rate Blood Pressure Blood Pressure [Left] O2 Sat by Pulse 99 99 99 Oximetry O2 Sat by Pulse Oximetry [ Bilateral] 05/05/21 05/05/21 05/05/21 15:51 15:56 16:00 Temperature Pulse Rate 82 89 66 Respiratory Rate Blood Pressure 130/60 Blood Pressure [Left] O2 Sat by Pulse 100 100 Oximetry O2 Sat by Pulse Oximetry [ Bilateral] 05/05/21 05/05/21 05/05/21 16:01 16:06 16:11 Temperature Pulse Rate 85 75 76 Respiratory Rate Blood Pressure Blood Pressure [Left] O2 Sat by Pulse 100 99 99 Oximetry O2 Sat by Pulse Oximetry [ Bilateral] 05/05/21 05/05/21 05/05/21 16:16 16:21 16:26 Temperature Pulse Rate 90 86 80 Respiratory Rate Blood Pressure Blood Pressure [Left] O2 Sat by Pulse 100 99 99 Oximetry O2 Sat by Pulse Oximetry [ Bilateral] 05/05/21 05/05/21 05/05/21 16:30 16:31 16:36 Temperature Pulse Rate 78 78 70 Respiratory Rate Blood Pressure 135/75 Blood Pressure [Left] O2 Sat by Pulse 99 99 Oximetry O2 Sat by Pulse Oximetry [ Bilateral] 05/05/21 05/05/21 05/05/21 16:41 16:46 16:51 Temperature Pulse Rate 80 83 82 Respiratory Rate Blood Pressure Blood Pressure [Left] O2 Sat by Pulse 100 100 100 Oximetry O2 Sat by Pulse Oximetry [ Bilateral] 05/05/21 05/05/21 05/05/21 16:56 17:01 17:06 Temperature Pulse Rate 83 78 87 Respiratory Rate Blood Pressure 127/60 Blood Pressure [Left] O2 Sat by Pulse 100 99 100 Oximetry O2 Sat by Pulse Oximetry [ Bilateral] 05/05/21 05/05/21 05/05/21 17:16 17:21 17:26 Temperature Pulse Rate 81 84 77 Respiratory Rate Blood Pressure Blood Pressure [Left] O2 Sat by Pulse 100 100 99 Oximetry O2 Sat by Pulse Oximetry [ Bilateral] 05/05/21 05/05/21 05/05/21 17:30 17:31 17:36 Temperature Pulse Rate 77 75 86 Respiratory Rate Blood Pressure 138/83 Blood Pressure [Left] O2 Sat by Pulse 100 99 Oximetry O2 Sat by Pulse Oximetry [ Bilateral] 05/05/21 05/05/21 05/05/21 17:41 17:46 17:51 Temperature Pulse Rate 83 82 80 Respiratory Rate Blood Pressure Blood Pressure [Left] O2 Sat by Pulse 99 100 99 Oximetry O2 Sat by Pulse Oximetry [ Bilateral] 05/05/21 05/05/21 05/05/21 17:56 18:00 18:01 Temperature Pulse Rate 82 81 75 Respiratory Rate Blood Pressure 135/67 Blood Pressure [Left] O2 Sat by Pulse 99 99 Oximetry O2 Sat by Pulse Oximetry [ Bilateral] 05/05/21 05/05/21 05/05/21 18:06 18:11 18:16 Temperature Pulse Rate 81 83 77 Respiratory Rate Blood Pressure Blood Pressure [Left] O2 Sat by Pulse 99 99 99 Oximetry O2 Sat by Pulse Oximetry [ Bilateral] 05/05/21 05/05/21 05/05/21 18:21 18:26 18:30 Temperature 98.0 F Pulse Rate 78 81 81 Respiratory Rate Blood Pressure 137/71 Blood Pressure [Left] O2 Sat by Pulse 99 98 Oximetry O2 Sat by Pulse Oximetry [ Bilateral] 05/05/21 05/05/21 05/05/21 18:31 18:36 18:41 Temperature Pulse Rate 88 79 81 Respiratory Rate Blood Pressure Blood Pressure [Left] O2 Sat by Pulse 99 99 98 Oximetry O2 Sat by Pulse Oximetry [ Bilateral] 05/05/21 05/05/21 05/05/21 18:46 18:51 18:56 Temperature Pulse Rate 93 H 79 80 Respiratory Rate Blood Pressure Blood Pressure [Left] O2 Sat by Pulse 98 99 98 Oximetry O2 Sat by Pulse Oximetry [ Bilateral] 05/05/21 05/05/21 05/05/21 19:00 19:01 19:06 Temperature Pulse Rate 78 81 78 Respiratory Rate Blood Pressure 136/70 Blood Pressure [Left] O2 Sat by Pulse 99 99 Oximetry O2 Sat by Pulse Oximetry [ Bilateral] 05/05/21 05/05/21 05/05/21 19:11 19:16 19:21 Temperature Pulse Rate 84 77 91 H Respiratory Rate Blood Pressure Blood Pressure [Left] O2 Sat by Pulse 99 99 99 Oximetry O2 Sat by Pulse Oximetry [ Bilateral] 05/05/21 05/05/21 05/05/21 19:26 19:30 19:31 Temperature Pulse Rate 86 82 81 Respiratory Rate Blood Pressure 137/84 Blood Pressure [Left] O2 Sat by Pulse 98 99 Oximetry O2 Sat by Pulse Oximetry [ Bilateral] 05/05/21 05/05/21 05/05/21 19:36 19:41 19:46 Temperature 97.8 F Pulse Rate 80 81 80 Respiratory 18 Rate Blood Pressure Blood Pressure 137/84 [Left] O2 Sat by Pulse 99 99 99 Oximetry O2 Sat by Pulse 99 Oximetry [ Bilateral] 05/05/21 05/05/21 05/05/21 19:51 19:56 20:00 Temperature Pulse Rate 81 81 90 Respiratory Rate Blood Pressure 139/88 Blood Pressure [Left] O2 Sat by Pulse 99 100 Oximetry O2 Sat by Pulse Oximetry [ Bilateral] 05/05/21 05/05/21 05/05/21 20:01 20:06 20:11 Temperature Pulse Rate 89 83 76 Respiratory Rate Blood Pressure Blood Pressure [Left] O2 Sat by Pulse 99 99 99 Oximetry O2 Sat by Pulse Oximetry [ Bilateral] 05/05/21 05/05/21 05/05/21 20:16 20:21 20:26 Temperature Pulse Rate 80 82 79 Respiratory Rate Blood Pressure Blood Pressure [Left] O2 Sat by Pulse 100 99 98 Oximetry O2 Sat by Pulse Oximetry [ Bilateral] 05/05/21 05/05/21 05/05/21 20:30 20:31 20:45 Temperature Pulse Rate 75 76 97 H Respiratory Rate Blood Pressure 140/80 Blood Pressure [Left] O2 Sat by Pulse 100 100 Oximetry O2 Sat by Pulse Oximetry [ Bilateral] 05/05/21 05/05/21 20:50 20:55 Temperature Pulse Rate 82 80 Respiratory Rate Blood Pressure Blood Pressure [Left] O2 Sat by Pulse 99 99 Oximetry O2 Sat by Pulse Oximetry [ Bilateral] - Labs Labs: Abnormal Labs 05/05/21 05/05/21 05/05/21 01:25 01:25 01:25 RBC 3.37 L RDW 16.2 H Carbon Dioxide 21 L Glucose 64 L Alkaline Phosphatase 157 H Lactate Dehydrogenase 212 H Albumin 3.3 L Laboratory Results - last 24 hr 05/04/21 05/05/21 05/05/21 22:55 01:25 01:25 WBC 8.4 RBC 3.37 L Hgb 10.6 Hct 31.2 MCV 93 MCH 31 MCHC 34 RDW 16.2 H Plt Count 189 Lymph % (Auto) 23.9 [place] % (Auto) 6.2 Eos % (Auto) 0.0 Baso % (Auto) 0.4 Lymph # (Auto) 2.0 [place] # (Auto) 0.5 Eos # (Auto) 0.0 Baso # (Auto) 0.0 Seg Neutrophils % 69.5 Seg Neutrophils # 5.8 Sodium 137 Potassium 4.6 Chloride 106.8 Carbon Dioxide 21 L Anion Gap 14 BUN 13 Creatinine 0.6 Estimated GFR > 60 BUN/Creatinine Ratio 22 Glucose 64 L Uric Acid Calcium 9.7 Total Bilirubin 0.20 AST 24 ALT 18 Alkaline Phosphatase 157 H Lactate Dehydrogenase Total Protein 6.8 Albumin 3.3 L Albumin/Globulin Ratio 0.9 Urine Color Yellow Urine Turbidity Clear Urine pH 6.0 Ur Specific [place] 1.029 Urine Protein 100 mg/dl Urine Glucose (UA) Neg Urine Ketones Neg Urine Blood Neg Urine Nitrite Neg Urine Bilirubin Neg Urine Urobilinogen < 2.0 Ur Leukocyte Esterase Neg Urine WBC (Auto) 4.0 Urine RBC (Auto) 3.0 U Epithel Cells (Auto) 4.0 Urine Bacteria (Auto) 1+ Urine Mucus 2+ Coronavirus (PCR) Blood Type Antibody Screen 05/05/21 05/05/21 05/05/21 01:25 01:25 Unknown WBC RBC Hgb Hct MCV MCH MCHC RDW Plt Count Lymph % (Auto) [place] % (Auto) Eos % (Auto) Baso % (Auto) Lymph # (Auto) [place] # (Auto) Eos # (Auto) Baso # (Auto) Seg Neutrophils % Seg Neutrophils # Sodium Potassium Chloride Carbon Dioxide Anion Gap BUN Creatinine Estimated GFR BUN/Creatinine Ratio Glucose Uric Acid 4.9 Calcium Total Bilirubin AST ALT Alkaline Phosphatase Lactate Dehydrogenase 212 H Total Protein Albumin Albumin/Globulin Ratio Urine Color Urine Turbidity Urine pH Ur Specific [place] Urine Protein Urine Glucose (UA) Urine Ketones Urine Blood Urine Nitrite Urine Bilirubin Urine Urobilinogen Ur Leukocyte Esterase Urine WBC (Auto) Urine RBC (Auto) U Epithel Cells (Auto) Urine Bacteria (Auto) Urine Mucus Coronavirus (PCR) Negative Blood Type A POSITIVE Antibody Screen Negative
[2021-05-06] MEDS: LACTATED RINGERS 1,000 ML IV SCH ×2 (01:36→11:01)
[2021-05-06 03:44] LABS: Creatinine,Urine 97.9 mg/dL (0.1-20.0)
[2021-05-06] MEDS: PRENATAL VIT27-FE FUMARATE-FOLIC ACID VIT TAB PO SCH (11:00)
[2021-05-06 15:32] VITALS: BP 138/60
== END 2021-05-06 16:00 | disposition still patient (30) ==
LOC: TRG 21:44 → APU 21:45 → TRG 23:29 → LD 23:29
DX: O62.9 Abnormality of forces of labor, unspecified (principal); Z20.822 Contact with and (suspected) exposure to COVID-19; O13.3 Gestational [pregnancy-induced] hypertension without significant proteinuria, third trimester; Z3A.36 36 weeks gestation of pregnancy; Z79.899 Other long term (current) drug therapy
CPT/HCPCS: 36415; 59025; 76815; 76819; 80053; 81001; 82565; 82570; 82575; 83615; 84156; 84550; 85025; 86850; 86900; 86901; G0378; J7120; U0003

== ENCOUNTER 2021-05-16 00:16 | Inpatient (IN) | payer OTHER ==
[2021-05-16] MEDS ORDERED: LACTATED RINGERS 1,000 ML ONE (03:25)
[2021-05-16] MEDS ORDERED: ePHEDrine SULFATE 50 MG/1 ML INJ IV PRN (03:57)
[2021-05-16] MEDS ORDERED: LOPERAMIDE 2 MG CAP PO PRN (03:57)
[2021-05-16] MEDS ORDERED: METHYLERGONOVINE MALEATE 0.2 MG/ML VIAL IM PRN (03:57)
[2021-05-16] MEDS ORDERED: TERBUTALINE 1 MG/1 ML INJ SUB-Q PRN (03:57)
[2021-05-16] MEDS ORDERED: LIDOCAINE (2%) 20 MG/1 ML VIAL 20 ML MDV INFILTRATI ONE (03:57)
[2021-05-16] MEDS ORDERED: BUTORPHANOL 2 MG/1 ML INJ IV PRN ×2 (03:57→12:30)
[2021-05-16] MEDS ORDERED: OXYTOCIN 10 UNIT/1 ML INJ IM PRN (03:57)
[2021-05-16] MEDS ORDERED: miSOPROStol 200 MCG TAB PR PRN (03:57)
[2021-05-16] MEDS ORDERED: CARBOPROST TROMETHAMINE 250 MCG/1 ML INJ IM PRN (03:57)
[2021-05-16] MEDS ORDERED: fentaNYL 100 MCG/2 ML INJ IV PRN ×2 (03:57→12:30)
[2021-05-16] MEDS ORDERED: MINERAL OIL 30 ML ORAL LIQD PO PRN (03:57)
[2021-05-16] MEDS ORDERED: OXYTOCIN DRIP 30 UNITS/500 ML BAG IV SCH ×3 (04:00→16:00)
[2021-05-16 05:25] LABS: Hemoglobin 9.6 gm/dl (10.1-14.3); Mean Corpuscular HGB Conc 34 % (30-34); Mean Corpuscular Volume 93 fl (79-97); Platelet Count 151 K/mm3 (140-440); Red Blood Count 3.02 M/mm3 (3.65-5.03); Red Cell Distribution Width 16.5 % (13.2-15.2)
[2021-05-16] MEDS: LACTATED RINGERS 1,000 ML IV SCH ×2 (06:28→15:56)
[2021-05-16] MEDS ORDERED: DINOPROSTONE 10 MG VAG SUPP VG ONE (06:43)
--- NOTE | 2021-05-16 06:59 | History and Physical Report ---
History of Present Illness Date of examination: 05/16/21 Date of admission: 05/16/21 00:16 Chief complaint: "I was sent by my doctor to be induced" History of present illness: 30 y/o presented to [facility] @ 37.5 for an IOL r/t preeclampsia. Pt denied patten, visual disturbances, epigastric pain, VB, or LOF. She admitted to [facility] and active FM. Pt initiated her pnc @ [facility] location @ 7 4/ wks. She was co managed by [facility]. Pt reports a hx of anemia, pp depression 2010, and trich with a neg WEN. Occ marijuana use. Hx of left eye surgery in 1992. She is rubella NI. Pt was admitted to [facility] for PTL and HTN May 04- & . Urine protien 432 on 05/06/21. GBS status is unknown. Family hx of HTN. Pt was admitted to L&D for an IOL. Past History Past Medical History: hypertension, other (Anemia, pp depression 2010) Past Surgical History: other (L eye surg 1992) [employer] History: trichomonas Family/Genetic History: hypertension Social history: single, full code, other ([facility] marijuana use) - Obstetrical History : 3 Para: 2 Hx # Term Pregnancies: 2 Number of Living Children: 2 Medications and Allergies Allergies Allergy/AdvReac Type Severity Reaction Status Date / Time latex Allergy Unknown Verified 05/12/19 03:26 Home Medications Medication Instructions Recorded Confirmed Last Taken Type Cholecalciferol (Vitamin D3) 1 tab PO DAILY 05/11/19 05/06/21 05/09/19 History [Vitamin D3 5,000 UNIT] Ferrous Sulfate [Iron 325 MG] 1 tab PO BID 05/11/19 05/06/21 05/10/19 History Vit-Fe Fumar-FA [ 1 tab PO DAILY 05/11/19 05/06/21 05/11/19 History Vitamin] Active Meds: Active Medications Butorphanol Tartrate (Butorphanol 2 Mg/1 Ml Inj) 1 mg IV Q2H PRN PRN Reason: Pain, Moderate(4-6) LABOR PAIN Carboprost Tromethamine (Carboprost Tromethamine 250 Mcg/1 Ml Inj) 250 mcg IM ONCE PRN PRN Reason: Uterine Bleeding Ephedrine Sulfate (Ephedrine Sulfate 50 Mg/1 Ml Inj) 10 mg IV Q2M PRN PRN Reason: Hypotension Fentanyl (Fentanyl 100 Mcg/2 Ml Inj) 100 mcg IV Q2H PRN PRN Reason: Pain, Mild (1-3) Oxytocin/Sodium Chloride (Pitocin/Ns 30 Unit/500ml) 30 units in 500 mls @ 2 mls/hr IV TITR LUCÍA; Protocol Lactated Ringer's (Lactated Ringers) 1,000 mls @ 125 mls/hr IV DIRECT LUCÍA Last Admin: 05/16/21 06:28 Dose: 125 mls/hr Documented by: Oxytocin/Sodium Chloride (Pitocin/Ns 30 Unit/500ml) 30 units in 500 mls @ 40 mls/hr IV TITR LUCÍA; Protocol Loperamide HCl (Loperamide 2 Mg Cap) 2 mg PO ONCE PRN PRN Reason: give with Hemabate Methylergonovine Maleate (Methylergonovine Maleate 0.2 Mg/Ml Vial) 0.2 mg IM ONCE PRN PRN Reason: Uterine Bleeding Mineral Oil (Mineral Oil 30 Ml Oral Liqd) 30 ml PO QHS PRN PRN Reason: Constipation Misoprostol (Misoprostol 200 Mcg Tab) 800 mcg ME ONCE PRN PRN Reason: Uterine Bleeding Oxytocin (Oxytocin 10 Unit/1 Ml Inj) 10 unit IM ONCE PRN PRN Reason: Uterine Bleeding Terbutaline Sulfate (Terbutaline 1 Mg/1 Ml Inj) 0.25 mg SUB-Q ONCE PRN PRN Reason: Hyperstimulation/Hypertonicity Review of Systems All systems: negative Eyes: deferred Ears, nose, mouth and throat: deferred Breasts: normal Genitourinary: normal appearance Rectal Exam: deferred - Vital Signs Vital signs: Vital Signs Pulse Pulse Ox 74 91 05/16/21 03:37 05/16/21 03:37 Temp Pulse Resp BP Pulse Ox 88 138/91 99 05/16/21 06:46 05/16/21 03:40 05/16/21 06:46 - Physical Exam Breasts: Positive: normal Abdomen: Positive: normal appearance, soft, normal bowel sounds Genitourinary (Female): Positive: normal external genitalia, normal perenium Vulva: both: normal Vagina: Positive: normal moisture Uterus: Positive: enlarged, normal contour, other (gravid) Adnexa: both: normal Anus/Rectum: Positive: normal perianal skin Extremities: Positive: normal - Obstetrical FHR: auscultation normal, category 1 Uterine Contraction Monitor Mode: External Cervical Dilatation: 1.5 Cervical Effacement Percentage: 50 station: -4 Uterine Contraction Pattern: Irregular Uterine Tone Measurement Phase: Resting Uterine Contraction Intensity: Mild Results Result Diagrams: 05/16/21 04:48 Abnormal lab results 05/16/21 Range/Units 04:48 RBC 3.02 L (3.65-5.03) M/mm3 Hgb 9.6 L (10.1-14.3) gm/dl Hct 28.0 L (30.3-42.9) % RDW 16.5 H (13.2-15.2) % All other labs normal. Assessment and Plan A: IUP@ 37.5 wks with preeclampsia Occ marijuana use Latex allergy Rubella NI pp depression 2010 GBS status unknown P: Admit to L&D for cervidil IOL Continuos monitoring PIH labs Pain med/Epidural prn Psych and SS consult post del Offer Rubella vaccine post del Obtain GBS status from [facility] this am if pos start GBS protocal Anticipate
[2021-05-16] MEDS ORDERED: AMPICILLIN/NS 2 GM/100 ML 2 GM/100 ML BAG IV ONE (10:35)
[2021-05-16 10:57] LABS: Hematocrit 31.4 % (30.3-42.9); Hemoglobin 10.5 gm/dl (10.1-14.3)
--- NOTE | 2021-05-16 11:30 | Event Note ---
Date: 05/16/21 Assumed care of patient at 10:30 AM today. Patient is having labor induced due to mild preeclampsia. Has Cervidil in place for cervical ripening. Patient denies headache, chest pain, nausea, swelling, or visual disturbance.
[2021-05-16] MEDS ORDERED: ACETAMINOPHEN 325 MG TAB PO PRN (12:30)
[2021-05-16] MEDS ORDERED: ONDANSETRON 4 MG/2 ML INJ IV PRN ×2 (15:00→19:25)
[2021-05-16] MEDS ORDERED: AMPICILLIN/NS 1 GM/50 ML 1 GM/50 ML BAG IV SCH (15:00)
[2021-05-16] MEDS ORDERED: BICITRA ORAL LIQD 30ML PO ONE (15:16)
[2021-05-16] MEDS ORDERED: METOCLOPRAMIDE 10 MG/2 ML INJ IV SCH ×2 (15:16→15:24)
[2021-05-16] MEDS ORDERED: FAMOTIDINE 20 MG/2 ML INJ IV SCH (15:16)
[2021-05-16] MEDS ORDERED: BICITRA ORAL LIQD 30ML PO SCH (15:24)
[2021-05-16] MEDS ORDERED: LACTATED RINGERS 1,000 ML IV SCH ×2 (15:30→16:30)
[2021-05-16] MEDS ORDERED: FAMOTIDINE 20 MG/2 ML INJ IV ONE (16:00)
[2021-05-16] MEDS ORDERED: ceFAZolin/Water 2 GM/20 ML 2 GM/20 ML SYRINGE IV NR (16:00)
--- NOTE | 2021-05-16 16:42 | Progress Note ---
Subjective - Subjective Date of service: 05/16/21 Interval history: NRFHT remote from delivery to OR for c/section informed consent Michelle Bartlett MD Objective - Vital Signs Vital Signs: Vital Signs - 12hr 05/16/21 05/16/21 05/16/21 04:42 04:47 04:52 Temperature Pulse Rate 81 101 H 86 Blood Pressure O2 Sat by Pulse 98 99 98 Oximetry 05/16/21 05/16/21 05/16/21 04:57 05:02 05:07 Temperature Pulse Rate 87 89 86 Blood Pressure O2 Sat by Pulse 97 97 98 Oximetry 05/16/21 05/16/21 05/16/21 05:12 05:17 05:22 Temperature Pulse Rate 92 H 98 H 91 H Blood Pressure O2 Sat by Pulse 97 99 99 Oximetry 05/16/21 05/16/21 05/16/21 05:27 05:32 05:37 Temperature Pulse Rate 94 H 94 H 96 H Blood Pressure O2 Sat by Pulse 99 97 98 Oximetry 05/16/21 05/16/21 05/16/21 05:42 05:47 05:52 Temperature Pulse Rate 94 H 95 H 99 H Blood Pressure O2 Sat by Pulse 97 98 99 Oximetry 05/16/21 05/16/21 05/16/21 05:57 06:02 06:07 Temperature Pulse Rate 97 H 97 H 96 H Blood Pressure O2 Sat by Pulse 98 99 99 Oximetry 05/16/21 05/16/21 05/16/21 06:12 06:17 06:22 Temperature Pulse Rate 97 H 94 H 99 H Blood Pressure O2 Sat by Pulse 99 100 99 Oximetry 05/16/21 05/16/21 05/16/21 06:27 06:32 06:46 Temperature Pulse Rate 97 H 96 H 88 Blood Pressure O2 Sat by Pulse 99 99 99 Oximetry 05/16/21 05/16/21 05/16/21 06:51 06:56 07:01 Temperature Pulse Rate 87 82 79 Blood Pressure O2 Sat by Pulse 99 98 99 Oximetry 05/16/21 05/16/21 05/16/21 07:06 07:11 07:16 Temperature Pulse Rate 82 94 H 88 Blood Pressure O2 Sat by Pulse 99 98 99 Oximetry 05/16/21 05/16/21 05/16/21 07:21 07:26 07:30 Temperature 98.7 F Pulse Rate 84 81 Blood Pressure O2 Sat by Pulse 99 99 Oximetry 05/16/21 05/16/21 05/16/21 07:31 07:36 07:40 Temperature Pulse Rate 82 86 90 Blood Pressure O2 Sat by Pulse 99 99 94 Oximetry 05/16/21 05/16/21 05/16/21 07:41 07:46 07:51 Temperature Pulse Rate 91 H 90 90 Blood Pressure O2 Sat by Pulse 98 98 98 Oximetry 05/16/21 05/16/21 05/16/21 07:56 08:01 08:06 Temperature Pulse Rate 91 H 91 H 89 Blood Pressure O2 Sat by Pulse 98 98 97 Oximetry 05/16/21 05/16/21 05/16/21 08:11 08:16 08:19 Temperature Pulse Rate 88 93 H 81 Blood Pressure 132/81 O2 Sat by Pulse 97 98 Oximetry 05/16/21 05/16/21 05/16/21 08:21 08:26 08:31 Temperature Pulse Rate 73 85 85 Blood Pressure O2 Sat by Pulse 99 99 98 Oximetry 05/16/21 05/16/21 05/16/21 08:35 08:36 08:41 Temperature Pulse Rate 86 88 92 H Blood Pressure 135/79 O2 Sat by Pulse 99 99 Oximetry 05/16/21 05/16/21 05/16/21 08:46 08:50 08:51 Temperature Pulse Rate 89 85 89 Blood Pressure 140/77 O2 Sat by Pulse 98 99 Oximetry 05/16/21 05/16/21 05/16/21 08:56 09:01 09:05 Temperature Pulse Rate 81 80 81 Blood Pressure 135/79 O2 Sat by Pulse 99 100 Oximetry 05/16/21 05/16/21 05/16/21 09:06 09:11 09:16 Temperature Pulse Rate 82 87 89 Blood Pressure O2 Sat by Pulse 100 99 100 Oximetry 05/16/21 05/16/21 05/16/21 09:21 09:22 09:26 Temperature Pulse Rate 67 69 73 Blood Pressure 136/73 O2 Sat by Pulse 99 98 Oximetry 05/16/21 05/16/21 05/16/21 09:32 09:35 09:37 Temperature Pulse Rate 72 72 68 Blood Pressure 157/74 O2 Sat by Pulse 99 99 Oximetry 05/16/21 05/16/21 05/16/21 09:42 09:48 09:50 Temperature Pulse Rate 71 67 Blood Pressure 148/75 O2 Sat by Pulse 99 100 Oximetry 05/16/21 05/16/21 05/16/21 09:54 09:58 10:04 Temperature Pulse Rate 77 68 73 Blood Pressure O2 Sat by Pulse 100 99 100 Oximetry 05/16/21 05/16/21 05/16/21 10:06 10:08 10:13 Temperature Pulse Rate 73 75 78 Blood Pressure 144/65 O2 Sat by Pulse 99 99 Oximetry 05/16/21 05/16/21 05/16/21 10:19 10:21 10:24 Temperature Pulse Rate 74 77 79 Blood Pressure 137/72 O2 Sat by Pulse 99 100 Oximetry 05/16/21 05/16/21 05/16/21 10:28 10:34 10:39 Temperature Pulse Rate 73 75 75 Blood Pressure O2 Sat by Pulse 99 100 99 Oximetry 05/16/21 05/16/21 05/16/21 10:44 10:49 10:54 Temperature Pulse Rate 79 78 72 Blood Pressure 144/73 O2 Sat by Pulse 100 100 99 Oximetry 05/16/21 05/16/21 05/16/21 10:59 11:04 11:09 Temperature Pulse Rate 76 69 77 Blood Pressure O2 Sat by Pulse 99 100 99 Oximetry 05/16/21 05/16/21 05/16/21 11:14 11:19 11:24 Temperature Pulse Rate 69 72 73 Blood Pressure 142/86 O2 Sat by Pulse 98 100 100 Oximetry 05/16/21 05/16/21 05/16/21 11:29 11:34 11:39 Temperature Pulse Rate 76 74 75 Blood Pressure O2 Sat by Pulse 100 99 99 Oximetry 05/16/21 05/16/21 05/16/21 11:44 11:49 11:54 Temperature Pulse Rate 78 79 78 Blood Pressure 148/80 O2 Sat by Pulse 99 99 100 Oximetry 05/16/21 05/16/21 05/16/21 11:59 12:04 12:09 Temperature Pulse Rate 81 96 H 81 Blood Pressure O2 Sat by Pulse 99 99 98 Oximetry 05/16/21 05/16/21 05/16/21 12:14 12:18 12:24 Temperature Pulse Rate 85 78 81 Blood Pressure 145/66 O2 Sat by Pulse 98 98 98 Oximetry 05/16/21 05/16/21 05/16/21 12:29 12:34 12:45 Temperature Pulse Rate 82 96 H 97 H Blood Pressure O2 Sat by Pulse 98 99 100 Oximetry 05/16/21 05/16/21 05/16/21 12:50 12:54 12:55 Temperature Pulse Rate 91 H 93 H 93 H Blood Pressure 129/74 O2 Sat by Pulse 99 98 Oximetry 05/16/21 05/16/21 05/16/21 13:00 13:05 13:10 Temperature Pulse Rate 84 85 91 H Blood Pressure O2 Sat by Pulse 98 98 99 Oximetry 05/16/21 05/16/21 05/16/21 13:15 13:20 13:25 Temperature Pulse Rate 84 85 76 Blood Pressure 136/70 O2 Sat by Pulse 98 99 99 Oximetry 05/16/21 05/16/21 05/16/21 13:30 13:35 13:40 Temperature Pulse Rate 81 84 81 Blood Pressure O2 Sat by Pulse 98 98 99 Oximetry 05/16/21 05/16/21 05/16/21 13:45 13:50 13:54 Temperature Pulse Rate 87 82 82 Blood Pressure 132/75 O2 Sat by Pulse 98 98 Oximetry 05/16/21 05/16/21 05/16/21 13:55 14:00 14:05 Temperature Pulse Rate 83 82 79 Blood Pressure O2 Sat by Pulse 98 99 98 Oximetry 05/16/21 05/16/21 05/16/21 14:10 14:15 14:20 Temperature Pulse Rate 82 78 81 Blood Pressure O2 Sat by Pulse 98 98 99 Oximetry 05/16/21 05/16/21 05/16/21 14:25 14:30 14:35 Temperature Pulse Rate 81 84 79 Blood Pressure 145/86 O2 Sat by Pulse 99 98 98 Oximetry 05/16/21 05/16/21 05/16/21 14:48 14:50 14:55 Temperature Pulse Rate 84 81 82 Blood Pressure O2 Sat by Pulse 99 98 98 Oximetry 05/16/21 05/16/21 05/16/21 15:00 15:05 15:10 Temperature Pulse Rate 78 77 75 Blood Pressure O2 Sat by Pulse 99 98 99 Oximetry 05/16/21 05/16/21 05/16/21 15:15 15:20 15:25 Temperature Pulse Rate 72 77 79 Blood Pressure O2 Sat by Pulse 100 100 100 Oximetry 05/16/21 16:15 Temperature Pulse Rate 80 Blood Pressure 137/93 O2 Sat by Pulse Oximetry - Labs Labs: Abnormal Labs 05/16/21 04:48 RBC 3.02 L Hgb 9.6 L Hct 28.0 L RDW 16.5 H Laboratory Results - last 24 hr 05/16/21 05/16/21 05/16/21 04:48 08:45 08:45 WBC 7.1 RBC 3.02 L Hgb 9.6 L 10.5 Hct 28.0 L 31.4 MCV 93 MCH 32 MCHC 34 RDW 16.5 H Plt Count 151 Syphilis IgG Antibody Nonreactive Coronavirus (PCR) Blood Type Antibody Screen 05/16/21 05/16/21 08:45 09:30 WBC RBC Hgb Hct MCV MCH MCHC RDW Plt Count Syphilis IgG Antibody Coronavirus (PCR) Negative Blood Type A POSITIVE Antibody Screen Negative
--- NOTE | 2021-05-16 17:10 | Anesthesia Day of Surgery ---
Anesthesia Day of Surgery - Day of Surgery Patient Examined: Yes Patient H&P Reviewed: Yes Patient is NPO: Yes Beta Blockers: No Cardiac Clearance: No Pulmonary Clearance: No Ben's Test: N/A
--- NOTE | 2021-05-16 17:12 | Anesthesia Consultation ---
Anesthesia Consult and Med Hx Date of service: 05/16/21 - Airway Anesthetic Teeth Evaluation: Poor ROM Head & Neck: Adequate Mental/Hyoid Distance: Adequate Mallampati Class: Class II Intubation Access Assessment: Good - Pulmonary Exam CTA: Yes - Cardiac Exam Cardiac Exam: RRR - Pre-Operative Health Status ASA Pre-Surgery Classification: ASA3 Proposed Anesthetic Plan: Spinal - Pre-Anesthesia Comment Pre-Anesthesia Comments: Occ marijuana use. Hx of left eye surgery in 1992. Pt was admitted to [facility] for PTL and HTN May 04. Urine protien 432 on 05/06/21. - Pulmonary Hx Smoking: Yes (Occ marijuana use) Hx Asthma: No Hx Respiratory Symptoms: No SOB: No COPD: No Home Oxygen Therapy: No Hx Pneumonia: No Hx Sleep Apnea: No - Cardiovascular System Hx Hypertension: Yes Hx Coronary Artery Disease: No Hx Heart Attack/AMI: No Hx Angina: No Hx Percutaneous Transluminal Coronary Angioplasty (PTCA): No Hx Cardia Arrhythmia: No Hx Pacemaker: No Hx Internal Defibrillator: No Hx Valvular Heart Disease: No Hx Heart Murmur: No Hx Peripheral Vascular Disease: No - Central Nervous System Hx Neuromuscular Disorder: No Hx Seizures: No CVA: No Hx Back Pain: Yes Hx Psychiatric Problems: Yes (2010 depression) - Gastrointestinal Hx Ulcer: No Hx Gastroesophageal Reflux Disease: Yes - Endocrine Hx Renal Disease: No Hx End Stage Renal Disease: No Hx Cirrhosis: No Hx Liver Disease: No Hx Insulin Dependent Diabetes: No Hx Non-Insulin Dependent Diabetes: No Hx Thyroid Disease: No Hx Hypothyroidism: No Hx Hyperthyroidism: No - Hematic Hx Anemia: No Hx Sickle Cell Disease: No - Other Systems Hx Alcohol Use: Yes (not recently) Hx Substance Use: No Hx Cancer: No Hx Obesity: Yes
--- NOTE | 2021-05-16 17:28 | Procedure Note ---
OB Delivery Note - Delivery Date of Delivery: 05/16/21 Surgeon: ASA ANDRES - Section Preop diagnosis: nonreassuring FHR tracing Postop diagnosis: same section procedure: primary low transverse Disposition: PACU Complications: none Narrative: Preop diagnosis: IUP at weeks, non reassuring heart tracing remote from delivery, multiparity desires permanent surgical sterilization Postop diagnosis: Same Procedure: Primary low transverse section via Pfannenstiel incision with Mofied Omid Bilateral Tubal ligation Surgeon: Dr. Asa Andres Anesthesia spinal Complications none EBL 747 ml IV fluids 1000 mL Urine output 200 mL, clear Drains Schaffer to gravity Findings: Viable male with weight 2443gms and 8/9, normal uterus tubes and ovaries bilaterally Procedure: Patient was consented in OB triage, taken to the operating room where she received excellent spinal anesthesia. She was then placed in the dorsal supine position with a leftward tilt. The abdomen was prepped and draped in a sterile fashion, and a timeout was verified. Adequate anesthesia was conf irmed prior to the skin incision. A Pfannenstiel skin incision was made with a scalpel taken down to the underlying structures and the fascia was incised in the midline. The incision was extended laterally with curved Buchanan scissors, the superior and inferior aspects of the fascial incisions were grasped with Franklin clamps and the rectus muscles dissected sharply. The abdomen was entered bluntly in the midline carried down inferiorly with good visualization of the bladder. The vesicouterine peritoneum was tented with Dutch forceps and incised in the midline with Metzenbaum scissors and the vesicouterine peritoneum taken down sharply. The uterine incision was then made sharply with a scalpel. The inferior and superior aspect of the uterine incisions were extended bluntly, the baby's head was delivered atraumatically. The remainder of the delivery was uncomplicated, loose nuchal cord reduced after delivery. The cord was clamped and cut and baby handed to waiting NICU team. An intact placenta with three- vessel cord delivered manually. The uterus was then cleared of all clots and debris and the uterus exteriorized. The uterine incision was closed in 2 layers of 0 vicryl with excellent hemostasis. Attention then turned to the fallopian tubes which were suture ligated in the usual fashion with excellent hemostasis. The abdomen was then irrigated with warm normal saline and the uterus placed back into the abdomen atraumatically. A second look at the uterine incision assured hemostasis. The peritoneum was closed with 3-0 Vicryl, the rectus muscles approximated with 3-0 Vicryl, and the fascia closed with 0 Vicryl in the usual fashion. The subcuticular structures were closed with interrupted sutures of 3-0 Vicryl and the skin closed with 4-0 Monocryl. A pressure dressing was applied. All sponge needle and instrument counts were correct x2. There were no complications. Mom and baby stable to PACU. EBL 747 mL Michelle Andres MD
[2021-05-16] MEDS ORDERED: WATER FOR IRRIG STERILE 1,500 ML BOTTLE IR ONE (17:55)
[2021-05-16] MEDS ORDERED: SODIUM CHLORIDE 0.9% IRR 1,500 ML BOTTLE IR ONE (17:55)
[2021-05-16] MEDS ORDERED: PHENYLEPHRINE/NS 1,000 MCG/10 ML SYRINGE (OR USE) IV ONE (17:57)
[2021-05-16] MEDS ORDERED: BUPIVACAINE/PF (0.25%) 2.5 MG/ML 30 ML VIAL INFILTRATI ONE ×2 (18:31)
[2021-05-16] MEDS ORDERED: dexAMETHasone 20 MG/5 ML VIAL ONE (18:31)
[2021-05-16] MEDS ORDERED: KETOROLAC 30 MG/1 ML INJ ONE (18:31)
[2021-05-16] MEDS ORDERED: ONDANSETRON 4 MG/2 ML INJ ONE (19:00)
[2021-05-16] MEDS ORDERED: LANOLIN/ZINC/DIMETHICONE (LANSINOH) 7 GM TP PRN (19:02)
[2021-05-16] MEDS ORDERED: KETOROLAC 30 MG/1 ML INJ IV PRN (19:02)
[2021-05-16] MEDS ORDERED: oxyCODONE /ACETAMINOPHEN 5-325MG TAB PO PRN (19:02)
[2021-05-16] MEDS ORDERED: NALOXONE 0.4 MG/1 ML INJ IV PRN ×2 (19:02→19:25)
[2021-05-16] MEDS ORDERED: MORPHINE 2 MG/1 ML INJ IV PRN (19:02)
[2021-05-16] MEDS ORDERED: MORPHINE 4 MG/1 ML INJ IV PRN ×2 (19:02→19:25)
[2021-05-16] MEDS ORDERED: WITCH HAZEL/ GLYCERIN PAD TP PRN (19:02)
--- NOTE | 2021-05-16 19:21 | Progress Note ---
Spinal Anesthesia Block - Spinal Anesthesia Block Start Time: 17:25 Stop Time: 19:15 Performed by:: JAYCEE BROWN Procedure: Patient IDed, H&P reviewed, all questions and concerns were answered, and consent was signed. Timeout was performed at bedside. Patient in sitting position. Sterile prep and drape was performed. [3] ml of 1% lidocaine skin wheal at L[3]- L [4]. Needle introducer advanced. 25 gauge spinal needle advanced. Clear, free flowing CSF. negative blood, negative paresthesia. Spinal dose given. All needles removed. Patient tolerated procedure.
--- NOTE | 2021-05-16 19:24 | Progress Note ---
Spinal Anesthesia Block - Spinal Anesthesia Block Start Time: 19:12 Stop Time: 19:14 Performed by:: JAYCEE BROWN Procedure: Patient consented for TAP block for post surgical pain management. Patient identified, monitors placed, and time out performed. TAP identified bilaterally via ultrasound. Skin prepped bilaterally with [chlorhexidine] and [22g stimuplex] needle advanced to the TAP. [Marcaine 0.25% 30ml] injected under ultrasound guidance on the [left] side. [Marcaine 0.25% 30ml] injected under ultrasound guidance on the [right] side. Negative aspiration every 5mL, No change in heart rate or rhythm. Patient tolerated the procedure well. No apparent complications seen.
[2021-05-16] MEDS ORDERED: HYDROmorphone 1 MG/1 ML INJ IV PRN ×2 (19:25)
[2021-05-16] MEDS ORDERED: D5W/LACTATED RINGERS 1,000 ML IV SCH (22:00)
[2021-05-16] MEDS: KETOROLAC 30 MG/1 ML INJ IV PRN (22:29)
[2021-05-17] MEDS: KETOROLAC 30 MG/1 ML INJ IV PRN (04:54)
[2021-05-17 08:44] LABS: Hematocrit 26.8 % (30.3-42.9); Hemoglobin 8.8 gm/dl (10.1-14.3)
--- NOTE | 2021-05-17 08:44 | Progress Note ---
Assessment and Plan routine postop care Michelle Bartlett MD Subjective - Subjective Date of service: 05/17/21 Interval history: NRFHT remote from delivery to OR for c/section informed consent Michelle Bartlett MD Patient reports: appetite normal, voiding normally, pain well controlled, ambulating normally [place]: doing well Objective - Vital Signs Latest vital signs: Vital Signs Temp Pulse Resp BP BP Pulse Ox Pulse Ox 05/17/21 04:54 20 05/17/21 01:42 20 05/17/21 00:41 98.2 F 75 18 144/73 99 05/16/21 22:29 20 05/16/21 20:50 98.0 F 62 20 127/74 98 98 05/16/21 20:15 55 L 12 121/72 100 05/16/21 20:00 62 12 125/63 100 05/16/21 19:45 62 12 124/71 05/16/21 19:30 59 L 12 129/71 99 05/16/21 19:25 58 L 17 114/69 100 05/16/21 19:20 58 L 12 120/69 100 05/16/21 19:15 56 L 12 118/60 100 05/16/21 19:11 97.4 F L 05/16/21 16:15 80 137/93 05/16/21 15:25 79 100 05/16/21 15:20 77 100 05/16/21 15:15 72 100 05/16/21 15:10 75 99 05/16/21 15:05 77 98 05/16/21 15:00 78 99 05/16/21 14:55 82 98 05/16/21 14:50 81 98 05/16/21 14:48 84 99 05/16/21 14:35 79 98 05/16/21 14:30 84 98 05/16/21 14:25 81 145/86 99 05/16/21 14:20 81 99 05/16/21 14:15 78 98 05/16/21 14:10 82 98 05/16/21 14:05 79 98 05/16/21 14:00 82 99 05/16/21 13:55 83 98 05/16/21 13:54 82 132/75 05/16/21 13:50 82 98 05/16/21 13:45 87 98 05/16/21 13:40 81 99 05/16/21 13:35 84 98 05/16/21 13:30 81 98 05/16/21 13:25 76 136/70 99 05/16/21 13:20 85 99 05/16/21 13:15 84 98 05/16/21 13:10 91 H 99 05/16/21 13:05 85 98 05/16/21 13:00 84 98 05/16/21 12:55 93 H 98 05/16/21 12:54 93 H 129/74 05/16/21 12:50 91 H 99 05/16/21 12:45 97 H 100 05/16/21 12:34 96 H 99 05/16/21 12:29 82 98 05/16/21 12:24 81 145/66 98 05/16/21 12:18 78 98 05/16/21 12:14 85 98 05/16/21 12:09 81 98 05/16/21 12:04 96 H 99 05/16/21 11:59 81 99 05/16/21 11:54 78 148/80 100 05/16/21 11:49 79 99 05/16/21 11:44 78 99 05/16/21 11:39 75 99 05/16/21 11:34 74 99 05/16/21 11:29 76 100 05/16/21 11:24 73 142/86 100 05/16/21 11:19 72 100 05/16/21 11:14 69 98 05/16/21 11:09 77 99 05/16/21 11:04 69 100 05/16/21 10:59 76 99 05/16/21 10:54 72 144/73 99 05/16/21 10:49 78 100 05/16/21 10:44 79 100 05/16/21 10:39 75 99 05/16/21 10:34 75 100 05/16/21 10:28 73 99 05/16/21 10:24 79 100 05/16/21 10:21 77 137/72 05/16/21 10:19 74 99 05/16/21 10:13 78 99 05/16/21 10:08 75 99 05/16/21 10:06 73 144/65 05/16/21 10:04 73 100 05/16/21 09:58 68 99 05/16/21 09:54 77 100 05/16/21 09:50 148/75 05/16/21 09:48 67 100 05/16/21 09:42 71 99 05/16/21 09:37 68 99 05/16/21 09:35 72 157/74 05/16/21 09:32 72 99 05/16/21 09:26 73 98 05/16/21 09:22 69 99 05/16/21 09:21 67 136/73 05/16/21 09:16 89 100 05/16/21 09:11 87 99 05/16/21 09:06 82 100 05/16/21 09:05 81 135/79 05/16/21 09:01 80 100 05/16/21 08:56 81 99 05/16/21 08:51 89 99 05/16/21 08:50 85 140/77 05/16/21 08:46 89 98 Intake and Output 05/16/21 05/17/21 05/17/21 23:59 07:59 15:59 Intake Total 920 240 Output Total 700 1200 Balance 220 -960 Intake: IV 800 Oral 120 Intake, Free Water 240 Output: Urine 700 1200 Indwelling Catheter 500 1200 Other: Total, Intake Amount 120 Total, Output Amount 500 1200 Estimated Blood Loss 747 - Exam Breasts: Present: deferred Cardiovascular: Present: Regular rate Lungs: Present: Clear to auscultation Abdomen: Present: normal appearance, soft, normal bowel sounds Extremities: Present: normal Deep Tendon Reflex Grade: Normal +2 Incision: Present: normal, dry, intact
[2021-05-17] MEDS: FERROUS SULFATE 325 MG TAB PO SCH (10:27)
[2021-05-17] MEDS: IBUPROFEN 800 MG TAB PO PRN (12:47)
[2021-05-17 15:05] LABS: Amphetamine Screen,Urine PRESUMPTIVE NEGATIVE; Benzodiazepines Screen,Urine PRESUMPTIVE NEGATIVE; Cannabinoid Screen,Urine PRESUMPTIVE NEGATIVE; Cocaine Screen,Urine PRESUMPTIVE NEGATIVE; Methadone Screen,Urine PRESUMPTIVE NEGATIVE; Opiate Screen,Urine PRESUMPTIVE NEGATIVE
[2021-05-17] MEDS: IBUPROFEN 600 MG TAB PO PRN (18:01)
[2021-05-17] MEDS: HYDROcodone/ACETAMINOPHEN 5-325 MG TAB PO PRN (21:31)
[2021-05-18] MEDS: IBUPROFEN 800 MG TAB PO PRN ×2 (03:39→18:09)
[2021-05-18] MEDS: IBUPROFEN 600 MG TAB PO PRN (09:00)
[2021-05-18] MEDS: FERROUS SULFATE 325 MG TAB PO SCH (10:51)
[2021-05-18] MEDS: HYDROcodone/ACETAMINOPHEN 5-325 MG TAB PO PRN ×2 (12:34→21:59)
--- NOTE | 2021-05-18 13:26 | Post Anesthesia Evaluation ---
- Post Anesthesia Evaluation Patient Participated: Yes Airway Patent: Yes Stable Respiratory Function: Yes Nausea/Vomiting: No Temp > 96.8F: Yes Pain Manageable: Yes Adequeate Hydration: Yes Anesthesia Complications: No Block Receding Appropriately: Yes Patient on Ventilator: No
--- NOTE | 2021-05-18 13:42 | Progress Note ---
Assessment and Plan A: /postop day 2 S/P primary LTCS. Preeclampsia. BPs well controlled. Obesity. Anemia. P: Encouraged patient to ambulate. Iron supplementation. Anticipate discharge home tomorrow if patient continues to do well. Subjective - Subjective Date of service: 05/18/21 Principal diagnosis: /postop day 2 S/P primary LTCS Patient reports: appetite normal, voiding normally, pain well controlled, flatus, ambulating normally, no dizzy ambulation, no bowel movement, no nauseated [place]: doing well Objective - Vital Signs Latest vital signs: Vital Signs Temp Pulse Resp BP Pulse Ox Pulse Ox 05/18/21 07:59 98.0 F 89 18 128/76 97 05/18/21 03:39 05/17/21 23:12 97.9 F 93 H 18 116/64 99 05/17/21 21:31 20 05/17/21 19:55 99 Intake and Output 05/17/21 05/18/21 05/18/21 23:59 07:59 15:59 Intake Total 960 240 480 Balance 960 240 480 Intake: Oral 600 240 480 Intake, Free Water 360 Other: Total, Intake Amount 240 240 240 # Voids Void 1 1 1 - Exam Cardiovascular: Present: Regular rate Lungs: Present: Clear to auscultation Abdomen: Present: normal appearance, soft, normal bowel sounds. Absent: dist ention, tenderness, guarding, rigidity Uterus: Present: normal, firm, fundal height below umbilicus. Absent: bogginess, tenderness Extremities: Present: edema (mild pedal edema bilaterally). Absent: tenderness Incision: Present: normal, dry, intact
[2021-05-18] MEDS ORDERED: MAGNESIUM HYDROXIDE (MOM) ORAL LIQD UDC PO PRN (20:48)
[2021-05-19] MEDS: HYDROcodone/ACETAMINOPHEN 5-325 MG TAB PO PRN (03:20)
--- NOTE | 2021-05-19 07:47 | Progress Note ---
Assessment and Plan A: /postop day 3 S/P primary LTCS. Preeclampsia. BPs stable. Obesity. Anemia. P: Discharge patient home today. Discussed with patient /postop discharge instructions and warning signs. Advised patient re: care of incision and activity restrictions. Advised patient to continue taking her vitamin and iron supplements at home. Advised patient to avoid intercourse, lifting, housework, and tub baths (patient may take showers). Advised patient to follow up at [facility] office in 2 days. Patient voiced understanding of all instructions. Subjective - Subjective Date of service: 05/19/21 Principal diagnosis: /postop day 3 S/P primary LTCS Patient reports: appetite normal, voiding normally, pain well controlled, flatus, ambulating normally, no dizzy ambulation, no nauseated [place]: doing well Objective - Vital Signs Latest vital signs: Vital Signs Temp Pulse Resp BP Pulse Ox Pulse Ox 05/19/21 00:59 98.4 F 86 20 130/78 98 05/18/21 21:05 97 05/18/21 16:34 97.4 F L 84 18 138/77 100 05/18/21 08:50 97 05/18/21 07:59 98.0 F 89 18 128/76 97 Intake and Output 05/18/21 05/18/21 05/19/21 15:59 23:59 07:59 Intake Total 720 360 180 Balance 720 360 180 Intake: Oral 720 Intake, Free Water 360 180 Other: Total, Intake Amount 240 # Voids Void 1 2 1 - Exam Cardiovascular: Present: Regular rate Lungs: Present: Clear to auscultation Abdomen: Present: normal appearance, soft, normal bowel sounds. Absent: distention, tenderness, guarding, rigidity Uterus: Present: normal, firm, fundal height below umbilicus. Absent: bogginess, tenderness Extremities: Present: normal. Absent: tenderness, edema Incision: Present: normal, dry, intact
--- NOTE | 2021-05-19 07:50 | Discharge Summary ---
Providers - Providers Date of Admission: 05/16/21 00:16 Date of discharge: 05/19/21 Attending physician: BELLA DIAZ Primary care physician: BELLA DIAZ Hospitalization Reason for admission: induction of labor Delivery: Procedure: primary low transverse Incision: normal, dry, intact Other procedures: none Discharge diagnosis: IUP at term delivered [place] baby: male Condition at discharge: Good Disposition: 01 HOME / SELF CARE / HOMELESS - Discharge Diagnoses (1) Term delivered Status: Acute (2) Anemia Status: Acute Plan - Discharge Medications Prescriptions: Ibuprofen [Motrin] 600 mg PO Q8H PRN #60 tablet PRN Reason: Pain oxyCODONE /ACETAMINOPHEN [Percocet 5/325] 1 tab PO Q6HR PRN #20 tablet PRN Reason: Pain - Provider Discharge Summary Activity: routine, no sex for 6 weeks, no heavy lifting 4 weeks, no strenuous exercise Diet: routine Instructions: routine Additional instructions: Continue taking your vitamins and iron supplements at home. Follow up at [facility] office in 2 days. Call your doctor immediately for: * Fever > 100.5 * Heavy vaginal bleeding ( >1 pad per hour) * Severe persistent headache * Shortness of breath * Reddened, hot, painful area to leg or breast * Drainage or odor from incision. * Keep incision clean and dry at all times and follow doctor's instructions regarding bathing/showering - Follow up plan Follow up: BELLA DIAZ MD [Primary Care Provider] - 48 Hours
[2021-05-19] MEDS: IBUPROFEN 800 MG TAB PO PRN (10:12)
[2021-05-19] MEDS: FERROUS SULFATE 325 MG TAB PO SCH (10:13)
[2021-05-19 12:41] VITALS: BP 132/75
== END 2021-05-19 12:50 | disposition home or self-care (01) | DRG 766 ==
LOC: LD 00:16 → APU 17:24 → OB 21:10
PROVIDERS: ADMIT Obstetrics & Gynecology; ATTEND Obstetrics & Gynecology
PROC: 10D00Z1 Extraction of Products of Conception, Low, Open Approach (ICD-10-PCS; principal; 2021-05-16)
PROC: 0UB70ZZ Excision of Bilateral Fallopian Tubes, Open Approach (ICD-10-PCS; 2021-05-16)
PROC: 3E0T3BZ Introduction of Anesthetic Agent into Peripheral Nerves and Plexi, Percutaneous Approach (ICD-10-PCS; 2021-05-16)
PROC: 3E0P7VZ Introduction of Hormone into Female Reproductive, Via Natural or Artificial Opening (ICD-10-PCS; 2021-05-16)
DX: O14.04 Mild to moderate pre-eclampsia, complicating childbirth (principal); Z37.0 Single live birth; Z3A.37 37 weeks gestation of pregnancy; O99.324 Drug use complicating childbirth; F12.90 Cannabis use, unspecified, uncomplicated; Z91.040 Latex allergy status; O99.62 Diseases of the digestive system complicating childbirth; O99.214 Obesity complicating childbirth; K21.9 Gastro-esophageal reflux disease without esophagitis; O69.81X0 Labor and delivery complicated by cord around neck, without compression, not applicable or unspecified; O99.02 Anemia complicating childbirth; D64.9 Anemia, unspecified; Z20.822 Contact with and (suspected) exposure to COVID-19; Z30.2 Encounter for sterilization
CPT/HCPCS: 36415; 59200; 80307; 82962; 85014; 85018; 85027; 86592; 86850; 86900; 86901; 88302; 88307; 99211; G0378; G0463; J1100; J1885; J2270; J2370; J2405; J2765; J7120; J7121; U0003